=== PATIENT | male | born 1985 | race Caucasian/White ===

== ENCOUNTER 2020-08-02 19:25 | Emergency (ER) | payer SELFPAY ==
[2020-08-02 19:26] VITALS: BP 174/107; PULSE 99; RESP 18; TEMP 37.6; O2SAT 99; BMI 22.0
[2020-08-02] MEDS: LORazepam 2 MG/ML Syringe IM ×2 (19:39→21:50)
[2020-08-02] MEDS: Ziprasidone IM 20 MG/ML VIAL IM (19:39)
--- NOTE | 2020-08-02 19:47 | EX.ED.DYSGE1 ---
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 Reportedly he has not slept for 5 days because he is abusing amphetamines. He was exhibiting bizarre behavior for the police so they brought him to the emergency department under a pink slip. Patient states he just needs to go to sleep. He is extremely agitated and cursing. PFSH PFS Medical History (Updated 08/02/20 @ 19:[address] Dmitri Zazueta DO) Methamphetamine abuse Home Medications NK 08/02/20 [History Last Taken Unknown] Allergy/AdvReac Type Severity Reaction Status Date / Time No Known Allergies Allergy Verified 08/02/20 19:28 no surgical history Social History (Updated 08/02/20 @ 19:[address] Dmitri Zazueta DO) Smoking Status: Current every day smoker tobacco type: cigarettes substance use type: amphetamines ROS ROS ED Constitutional Constitutional ED: Denies chills or weight loss Eyes Eyes: Denies change in vision or diplopia ENT ENT ED: Denies ear pain, rhinorrhea or sore throat Cardiovascular Cardiovascular: Denies chest pain, orthopnea, palpitations or racing heartbeat Respiratory/Chest Respiratory/Chest: Denies cough, dyspnea or orthopnea Gastrointestinal Gastrointestinal: Denies abdominal pain, diarrhea, nausea or vomiting Genitourinary Genitourinary ED: Denies dysuria, hematuria or urinary frequency Musculoskeletal Musculoskeletal: Denies arthralgias or myalgias Integumentary Denies abscess or rash Neurologic Neurologic: Denies headache(s) or weakness Psychiatric Psychiatric: Denies anxiety, depression, suicidal ideation or suicidal thoughts Endocrine Endocrinology: Denies polydipsia, polyphagia or polyuria Allergic/Immunologic Allergic/Immunologic ED: Denies mouth swelling, tongue swelling or urticaria EXAM Physical Exam Const Vital Signs: 08/02/20 19:26 Temperature 99.6 F H Temperature Source Temporal Pulse Rate 99 Respiratory Rate 18 Blood Pressure 174/107 H Blood Pressure Mean 129 Pulse Ox 99 Oxygen Delivery Method Room Air Positive well nourished and well developed General Appearance ED: well developed HEENT Reports normocephalic, head/scalp atraumatic and moist mucous membranes Eyes PERRL and EOMs intact bilaterally Neck no lymphadenopathy, supple and no JVD Resp normal respiratory effort and clear to auscultation bilaterally Cardio regular rate, regular rhythm and no murmurs GI normal to inspection, nondistended, normoactive bowel sounds and non-tender Palpation: soft Back/Spine no CVA tenderness and normal ROM Extremity normal to inspection General Extremety ED: Negative for edema General Extremity: Negative for edema Neuro oriented x3 and CN's II-XII intact bilaterally Neuro Narrative: Patient is hyperalert. Motor Exam: strength 5/5 throughout Psych mental status grossly normal Psych Narrative: Patient has nonlinear thinking. He has pressured speech. He is very agitated. He is cursing quite loudly at the police and for some reason he is yelling at me. Mood & Affect: Negative for depressed or tearful Skin no rashes or lesions noted and no wounds MDM MDM MDM Narrative Medical decision making narrative: Patient was given 20 mg of Geodon and 2 mg of Ativan IM. He will be allowed to rest and when awake we can reevaluate his mental status Discharge Plan Triage Chief Complaint: Substance Abuse ED Provider: Dmitri Zazueta Dx/Rx/DC Orders Clinical Impression: Methamphetamine abuse Prescriptions: No Action NK RF: 0 Primary Care Provider: Care Physician,No Primary Referrals: Care Physician,No Primary [Primary Care Provider] -
[2020-08-02 21:25] VITALS: RESP 16
[2020-08-02 23:00] VITALS: RESP 15
[2020-08-03 01:00] VITALS: BP 133/100; PULSE 96; RESP 16; O2SAT 99
[2020-08-03 03:00] VITALS: RESP 15
[2020-08-03 05:47] VITALS: BP 129/78; PULSE 92; RESP 16; O2SAT 99
[2020-08-03 08:45] VITALS: RESP 18
== END 2020-08-03 09:09 | disposition home or self-care (01) ==
PROVIDERS: Emergency Provider Student in an Organized Health Care Education/Training Program
DX: F15.10 Other stimulant abuse, uncomplicated (principal); R45.1 Restlessness and agitation; F17.210 Nicotine dependence, cigarettes, uncomplicated; R40.0 Somnolence
CPT/HCPCS: 96372; 99282; J3486

== ENCOUNTER 2021-10-06 02:28 | Emergency (ER) | payer SELFPAY ==
[2021-10-06 02:28] VITALS: BP 183/106; PULSE 74; RESP 15; TEMP 36.9; O2SAT 98; BMI 20.6
== END 2021-10-06 02:46 | disposition left against medical advice (07) ==
LOC: ED 02:45
PROVIDERS: Emergency Provider Emergency Medicine; Visit Provider Emergency Medicine
DX: F15.10 Other stimulant abuse, uncomplicated (principal)
CPT/HCPCS: 99281

== ENCOUNTER 2022-08-17 21:39 | Emergency (ER) | payer MEDICAID, SELFPAY ==
[2022-08-17 21:39] VITALS: BP 148/108; PULSE 86; RESP 15; TEMP 36.3; O2SAT 100
[2022-08-17 21:51] VITALS: BMI 21.3
--- NOTE | 2022-08-17 22:12 | EKG12_ITS ---
Test Reason : LOWER EXTREMITIES Blood Pressure : / mmHG Vent. Rate : 080 BPM Atrial Rate : 080 BPM P-R Int : 142 ms QRS Dur : 090 ms QT Int : 378 ms P-R-T Axes : 077 092 068 degrees QTc Int : 435 ms Normal sinus rhythm Rightward axis Borderline ECG Confirmed by CHAVEZ BLACK, ASHOK ([id number]), news copy editor ROB TONEY ([id number]) on 08/18/2022 2:28:32 PM Referred By: Confirmed By:ASHOK BYRNE MD
--- NOTE | 2022-08-17 22:17 | US_ITS ---
STUDY: VENOUS DOPPLER ULTRASOUND - BILATERAL LOWER EXTREMITIES REASON FOR EXAM: Male, 37 years old. bilateral swelling and cramps TECHNIQUE: Ultrasound evaluation of the deep vein system to include borges-scale imaging and compression was performed. Borges-scale imaging and Doppler sonographic evaluation, including duplex spectral analysis and qualitative color flow sonography, was performed. COMPARISON: None. FINDINGS: RIGHT LEG Common Femoral Vein: Normal compression, spontaneity and augmentation. Normal color Doppler. Common Femoral Vein/Greater Saphenous Junction: Normal compression, spontaneity and augmentation. Normal color Doppler. Deep Femoral Vein: Normal compression, spontaneity and augmentation. Normal color Doppler. Femoral Proximal: Normal compression, spontaneity and augmentation. Normal color Doppler. Femoral Middle: Normal compression, spontaneity and augmentation. Normal color Doppler. Femoral Distal: Normal compression, spontaneity and augmentation. Normal color Doppler. Popliteal Vein: Normal compression, spontaneity and augmentation. Normal color Doppler. Posterior Tibial Vein: Normal compression, spontaneity and augmentation. Normal color Doppler. Peroneal Vein: Normal compression, spontaneity and augmentation. Normal color Doppler. LEFT LEG Common Femoral Vein: Normal compression, spontaneity and augmentation. Normal color Doppler. Common Femoral Vein/Greater Saphenous Junction: Normal compression, spontaneity and augmentation. Normal color Doppler. Deep Femoral Vein: Normal compression, spontaneity and augmentation. Normal color Doppler. Femoral Proximal: Normal compression, spontaneity and augmentation. Normal color Doppler. Femoral Middle: Normal compression, spontaneity and augmentation. Normal color Doppler. Femoral Distal: Normal compression, spontaneity and augmentation. Normal color Doppler. Popliteal Vein: Normal compression, spontaneity and augmentation. Normal color Doppler. Posterior Tibial Vein: Normal compression, spontaneity and augmentation. Normal color Doppler. Peroneal Vein: Normal compression, spontaneity and augmentation. Normal color Doppler. US/Venous Duplex Imag/Antwan Extrem IMPRESSION: Normal venous Doppler ultrasound of the bilateral lower extremities. Electronically Signed: Jhonathan Vazquez MD at 23:29 EDT ,
--- NOTE | 2022-08-17 22:26 | EDS_ITS ---
HPI History of Present Illness Chief Complaint: Lower Extremity Injury Informant: patient Narrative Narrative: Patient is a 37-year-old male with history of methamphetamine abuse presenting with insomnia and bilateral foot pain/swelling. Patient states that he has not slept for about a week and a half because he is just been doing drugs. He states he smokes with amphetamines. He denies any other drug use. He states he has been able to sleep. He came here because he was told we can help him. He also notes that the past 5 days he had worsening swelling of his feet and pain. He states his lower legs are cramping a lot as well. He thinks he has stress fractures. He has not been previously diagnosed with this or had any imaging. In addition he has significant sunburns to his lower extremities he states this is because he is just walking around all the time. He denies any HI or SI. Notes that he does get short of breath when he stands but states this because his legs hurt so much. No other complaints or concerns at this time. [facility] Medical History Methamphetamine abuse Home Medications NK 08/02/20 [History Last Taken Unknown] Allergy/AdvReac Type Severity Reaction Status Date / Time No Known Allergies Allergy Verified 08/17/22 21:43 Social History Smoking Status: Current every day smoker tobacco type: cigarettes substance use type: amphetamines ROS ROS ED Constitutional Constitutional ED: Reports other Details: Insomnia ; Denies chills or fever(s) Eyes Eyes: Denies change in vision Cardiovascular Cardiovascular: Denies chest pain or palpitations Respiratory/Chest Respiratory/Chest: Reports dyspnea; Denies cough Gastrointestinal Gastrointestinal: Denies abdominal pain, nausea or vomiting Genitourinary Genitourinary ED: Denies dysuria, hematuria or urinary frequency Musculoskeletal Musculoskeletal: Reports myalgias and other Details: Lower extremity leg cramping and foot pain ; Denies arthralgias Integumentary Reports other Details: Sunburn to the lower extremities Neurologic Neurologic: Denies headache(s) or weakness Psychiatric Psychiatric: Reports anxiety; Denies suicidal ideation or suicidal thoughts EXAM Physical Exam Const Vital Signs: 08/17/22 21:39 07/13/23 00:15 Temperature 97.4 F L Temperature Source Temporal Pulse Rate 86 Respiratory Rate 15 Blood Pressure 148/108 H 165/75 H Blood Pressure Mean 121 Pulse Ox 100 Oxygen Delivery Method Room Air Positive unkempt General Appearance ED: unkempt and NAD HEENT Reports moist mucous membranes Negative for trauma Eyes PERRL and EOMs intact bilaterally General Eye ED: Negative for pale conjunctiva or scleral icterus Neck supple and no JVD Chest Wall inspection of chest normal and palpation of chest normal Resp normal respiratory effort and clear to auscultation bilaterally Cardio regular rate, regular rhythm and no murmurs GI normal to inspection, nondistended, normoactive bowel sounds and non-tender Extremity Extremity Narrative: 2+ bilateral pitting edema of the feet. Diffuse tenderness palpation of the calfs and feet. No crepitus appreciated. Neuro oriented x3 Sensorium / Orientation: alert Motor Exam: Negative for general weakness Psych Psych Narrative: Patient acting appropriately at this time. Does not appear to be internally stimulated. Appearance: unkempt Skin Skin Narrative: Superficial sunburn of the lower extremities from the ankle to the knee with well demarcated areas of termination. No blistering appreciated or sloughing of the skin. No rash on the hands or the soles of the feet present. MDM MDM MDM Narrative Medical decision making narrative: Patient is evaluated for lower extremity pain and edema. This is conjunction with what sounds like a methamphetamine block. Differential includes rhabdomyolysis, trauma/fracture, DVT, electrolyte abnormalities and nephrotic syndrome. Patient is overall acting appropriate and states he just wants to sleep for couple days. Will start with IV fluids and dose of IV Ativan and I will perform medical work-up for this. Patient is agreeable with this at this time. Patient is now resting comfortably and sleeping. Work-up negative for DVT, ac mariann fracture, TERI or rhabdomyolysis. CK mildly elevated at 427 but does not meet criteria for rhabdo. Patient is resting comfortably. He does have a tiny metallic foreign body at the bottom of his left foot however is not causing pain. I think the risk of trying to remove it outweighs the benefit. Drug screen is positive for amphetamines which fits the patient's history. Patient is allowed to sleep in the ER for some time will be discharged home with resources to [facility] as well as [facility]. Lab Data Attestation: I reviewed the patient's lab results. Labs: Laboratory Results - last 24 hr 08/17/22 08/17/22 22:25 23:10 Sodium 137 Potassium 3.6 Chloride 104 Carbon Dioxide 31.0 Anion Gap 2 L BUN 13 Creatinine 0.91 Estim Creat Clear Calc 111.00 Est GFR (MDRD) Af Amer 120 Est GFR (MDRD) Non-Af 100 BUN/Creatinine Ratio 14.3 Glucose 98 Calcium 8.8 Magnesium 1.9 Total Bilirubin 0.30 AST 17 ALT 23 Alkaline Phosphatase 90 Total Creatine Kinase 427 H Total Protein 7.0 Albumin 3.4 Globulin 3.6 Albumin/Globulin Ratio 0.9 TSH 0.61 Urine Color Yellow Urine Clarity Clear Urine pH 7.0 Ur Specific [place] 1.010 Urine Protein 15 H Urine Glucose (UA) Normal Urine Ketones Negative Urine Occult Blood Negative Urine Nitrite Negative Urine Bilirubin Negative Urine Urobilinogen Normal Ur Leukocyte Esterase 25 H Urine RBC 0 SEEN Urine WBC 0-5 SEEN Ur Squamous Epith Cells 0 SEEN Urine Bacteria 0 SEEN Urine Mucus 0 SEEN Urine Opiates Screen NEGATIVE Urine Methadone Screen NEGATIVE Ur Barbiturates Screen NEGATIVE Ur Phencyclidine Scrn NEGATIVE Ur Amphetamines Screen POSITIVE H MDMA (Ecstasy) Screen NEGATIVE U Benzodiazepines Scrn NEGATIVE Urine Cocaine Screen NEGATIVE U Cannabinoids Screen NEGATIVE Ur Drug Screen Comment Ethyl Alcohol < 3.0 Radiography Diagnostic Testing: Clinical Impression(s) from Imaging Studies Venous Duplex 08/17/22 22:17 IMPRESSION: Normal venous Doppler ultrasound of the bilateral lower extremities. Electronically Signed: Jhonathan Vazquez MD at 23:29 EDT Reading Location ID and State: [id number] / [employer] Tel , Service support , Foot X-Ray 08/17/22 22:47 IMPRESSION: Normal x-ray examination of the foot. Electronically Signed: Jhonathan Vazquez MD at 23:33 EDT , Foot X-Ray 08/17/22 22:47 IMPRESSION: 1. No acute fracture or dislocation. 2. Tiny metallic foreign body in the plantar soft tissues of the first digit. Electronically Signed: Jhonathan Vazquez MD at 23:32 EDT , Bilateral foot x-ray?tiny metallic foreign body in the plantar aspect of the left great toe. No acute bony process. Rhythm Strip Rhythm Strip: Sinus Rhythm Rate: 80 Ectopy: None EKG Initial EKG: Attestation: I personally reviewed and interpreted this EKG as follows: Interpretation: Sinus Rhythm Comments: Normal sinus rhythm at a rate of 80 bpm Rightward axis Normal ST segments, questionable early repolarization versus pulmonary disease pattern Normal intervals Prior EKG tracings: not available for review Prior: No Prior Discharge Plan Triage Chief Complaint: Lower Extremity Injury ED Provider: Kaela Schmid Dx/Rx/DC Orders Clinical Impression: Leg edema, Sunburn of first degree, Methamphetamine abuse Instructions: ED Drug Abuse, ED Peripheral Edema, Bilateral, ED Sunburn Prescriptions: No Action NK Primary Care Provider: Care Physician,No Primary Referrals: Enriqueta Sierra [Non-Staff] - As Needed Care Physician,No Primary [Primary Care Provider] - [facility] [Non-Staff] - As soon as possible Disposition Disposition: Home, Self Care Discharge Date/Time: 08/18/22 00:20
[2022-08-17 22:44] LABS: Alcohol, Blood (Medical)-Serum < 3.0 mg/dL
--- NOTE | 2022-08-17 22:47 | RAD_ITS ---
STUDY: X-RAY - RIGHT FOOT CLINICAL: Male, 37 years old. Injury/Pain TECHNIQUE: 3 view(s) of the foot. COMPARISON: None. FINDINGS: Normal talus, calcaneus, and tarsal bones. Normal visualized subtalar, talonavicular, calcaneocuboid, tarsal and tarsometatarsal articulations. Normal metatarsi. Normal metatarsophalangeal joint of the great toe. Normal tibial and fibular sesamoid bones. Normal interphalangeal joint of the great toe. Normal phalanges of the great toe. Normal second through fifth metatarsophalangeal joints. Normal interphalangeal joints and phalanges of the lesser toes. The soft tissue structures are unremarkable. RAD/Foot min 3 Views IMPRESSION: Normal x-ray examination of the foot. Electronically Signed: Jhonathan Vazquez MD at 23:33 EDT ,
--- NOTE | 2022-08-17 22:47 | RAD_ITS ---
STUDY: X-RAY - LEFT FOOT CLINICAL: Male, 37 years old. Injury/Pain TECHNIQUE: 3 view(s) of the foot. COMPARISON: None. FINDINGS: Normal talus, calcaneus, and tarsal bones. Normal visualized subtalar, talonavicular, calcaneocuboid, tarsal and tarsometatarsal articulations. Normal metatarsi. Normal metatarsophalangeal joint of the great toe. Normal tibial and fibular sesamoid bones. Normal interphalangeal joint of the great toe. Normal phalanges of the great toe. Normal second through fifth metatarsophalangeal joints. Normal interphalangeal joints and phalanges of the lesser toes. The soft tissue structures are unremarkable. 2 mm thin metallic foreign body in the plantar soft tissues of the first digit. RAD/Foot min 3 Views IMPRESSION: 1. No acute fracture or dislocation. 2. Tiny metallic foreign body in the plantar soft tissues of the first digit. Electronically Signed: Jhonathan Vazquez MD at 23:32 EDT ,
[2022-08-17] MEDS: 0.9% Normal Saline 1,000 ML 999 ML IV (22:57)
[2022-08-17] MEDS: LORazepam 2 MG/ML Syringe 0.5 MG IV (22:57)
[2022-08-17 22:58] LABS: ALB/GLOB Ratio 0.9 RATIO (0.9-2.4); AST(SGOT) 17 U/L (15-37); Alanine Aminotransfer ALT/SGPT 23 U/L (16-61); Albumin, Serum 3.4 g/dL (3.2-5.0); Alkaline Phosphatase 90 U/L (45-117); Anion Gap 2 (5-15); BUN 13 mg/dL (7-18); BUN/Creat Ratio 14.3 RATIO (10-20); CPK Total, Creatine Kinase 427 U/L (39-308); Calcium,Total 8.8 mg/dL (8.5-10.1); Chloride 104 mmol/L (98-107); Creatinine, Serum 0.91 mg/dL (0.70-1.30); EST Glomerular Filtration Rate 100 mL/min (>60); Est Glom Filt Rate - Afr Amer 120 mL/min (>60); Globulin 3.6 g/dL (2.2-4.2); Glucose 98 mg/dL (74-106); Magnesium 1.9 mg/dL (1.6-2.6); Potassium 3.6 mmol/L (3.5-5.1); Sodium Level 137 mmol/L (136-145); Thyroid Stim Hormone (TSH) 0.61 uIU/mL (0.358-3.74)
[2022-08-17 23:17] LABS: Bacteria 0 SEEN /hpf (None Seen); Mucous, Urine 0 SEEN /hpf (<or=2+); Red Blood Cells-Urine 0 SEEN /hpf (0-5); Squamous Epithelial Cells - UA 0 SEEN /hpf (0-5)
[2022-08-17 23:19] LABS: Color, Urine Yellow (Yellow); Glucose, Dipstick Normal (Normal); Ketone-Dipstick Negative (Negative); Leukocyte Esterase-Dipstick 25 /ul (Negative); Nitrite-Dipstick Negative (Negative); Occult Blood-Urine Negative /ul (Negative); Protein-Dipstick 15 mg/dl (Negative); Urine Bilirubin Dipstick Negative (Negative); Urine Clarity Clear (Clear); Urine Urobilinogen Normal (Normal)
[2022-08-17 23:25] LABS: White Blood Cells 0-5 SEEN /hpf (0-5)
[2022-08-17 23:31] LABS: Amphetamine Urine VISTA POSITIVE (<1000 ng/mL); Barbiturate Urine VISTA NEGATIVE (< 200 ng/mL); Benzodiazepine Urine VISTA NEGATIVE (< 200 ng/mL); Cocaine Urine VISTA NEGATIVE (< 300 ng/mL); Ecstacy Urine VISTA NEGATIVE (< 500 ng/mL); Methadone Urine VISTA NEGATIVE (< 300 ng/mL); PCP Urine VISTA NEGATIVE (< 25 ng/mL); THC Urine VISTA NEGATIVE (< 50 ng/mL); Vista UDS pH Range 6
[2022-08-18 00:15] VITALS: BP 165/75
== END 2022-08-18 00:20 | disposition home or self-care (01) ==
PROVIDERS: Emergency Provider Emergency Medicine; Visit Provider Emergency Medicine
DX: R60.0 Localized edema (principal); F15.10 Other stimulant abuse, uncomplicated; L55.0 Sunburn of first degree; M79.671 Pain in right foot; M79.672 Pain in left foot; S90.852A Superficial foreign body, left foot, initial encounter; X58.XXXA Exposure to other specified factors, initial encounter; G47.00 Insomnia, unspecified; F17.210 Nicotine dependence, cigarettes, uncomplicated
CPT/HCPCS: 73630; 80053; 80307; 81001; 82077; 82550; 83735; 84443; 93005; 93970; 96361; 96374; 99283; J7030; A4216

== ENCOUNTER 2024-12-14 14:27 | Emergency (ER) | payer MEDICAID, SELFPAY ==
[2024-12-14 14:28] VITALS: BP 138/86; PULSE 90; RESP 16; TEMP 36.6; O2SAT 99
[2024-12-14 14:31] VITALS: BMI 22.1
[2024-12-14 14:34] VITALS: BP 121/73; PULSE 80; RESP 16; O2SAT 97
--- NOTE | 2024-12-14 15:14 | EX.ED.DYSGE1 ---
HPI History of Present Illness Chief Complaint: Abd Pain Informant: patient Narrative Narrative: Patient is a 39-year-old male with history of methamphetamine abuse. He states that a few weeks ago he thinks he ate some bad chicken. He states he has had generalized abdominal pain since that time. He states that he believes he has pus in his stomach. He states has been no nausea vomiting diarrhea. He denies any fevers or chills. However because he has concern for intestinal infection he presents for evaluation [facility] Medical History Methamphetamine abuse Home Medications ?Medication ?Instructions ?Recorded ?Last Taken ?Type ciprofloxacin HCl 500 mg tablet 500 mg PO BID 5 days #10 tabs 12/14/24 Unknown Rx (Cipro) ondansetron 4 mg disintegrating 4 mg PO TID PRN nausea and 12/14/24 Unknown Rx tablet vomiting #21 tabs Allergy/AdvReac Type Severity Reaction Status Date / Time No Known Allergies Allergy Verified 12/14/24 14:29 Social History Smoking Status: Former smoker substance use type: amphetamines ROS ROS ED Constitutional Constitutional ED: Denies chills or fever(s) ENT ENT ED: Denies sore throat Cardiovascular Cardiovascular: Denies chest pain Respiratory/Chest Respiratory/Chest: Denies cough or dyspnea Gastrointestinal Gastrointestinal: Reports abdominal pain; Denies diarrhea, nausea or vomiting Genitourinary Genitourinary ED: Denies dysuria Musculoskeletal Musculoskeletal: Denies myalgias Integumentary Denies rash Neurologic Neurologic: Denies headache(s) Hematologic/Lymphatic Hematologic/Lymphatic: Denies easy bleeding or easy bruising EXAM Physical Exam Const Vital Signs: 12/14/24 14:28 12/14/24 14:34 Temperature 97.9 F Temperature Source Temporal Pulse Rate 90 80 Respiratory Rate 16 16 Blood Pressure 138/86 H 121/73 H Blood Pressure Mean 103 89 Pulse Ox 99 97 Oxygen Delivery Method Room Air Room Air Positive well nourished and well developed General Appearance ED: well developed; Negative for pallor HEENT HEENT Narrative: Normocephalic atraumatic No tongue or lip swelling no oral lesions no airway edema or compromise No secondary findings in the posterior pharynx to suggest infection Eyes PERRL and EOMs intact bilaterally General Eye ED: Negative for scleral icterus Neck supple Resp normal respiratory effort and clear to auscultation bilaterally Cardio regular rate and regular rhythm GI normal to inspection, nondistended, normoactive bowel sounds, non-tender, non-distended and no masses GI Narrative: Abdomen is soft nontender nondistended with normal active bowel sounds No voluntary guarding or rigidity or pulsatile mass No peritoneal signs Auscultation: normoactive bowel sounds Palpation: soft Extremity normal to inspection Neuro oriented x3, CN's II-XII intact bilaterally and no sensory deficits noted Sensorium / Orientation: alert Motor Exam: strength 5/5 throughout Psych Psych Narrative: Nervous/anxious affect Mood & Affect: anxious Skin no rashes or lesions noted and no wounds General Skin Exam: Negative for jaundice or pallor MDM MDM MDM Narrative Medical decision making narrative: Patient arrived to the ER complaining that he ate tainted chicken and now has an abdominal infection. Despite this complaint his vitals are stable his abdomen is nontender he denies having any fevers or chills or GI symptoms such as nausea vomiting or diarrhea. Based on his history and exam and stable vitals I have low concern that there is an intestinal abscess or secondary infection such as colitis/diverticulitis. As he has concern that he has Salmonella I do feel the safest option is to simply place him on a 5-day course of Cipro which would cover for the potential infection. However with stable vitals and normal physical exam I do not feel the need for CT scan or laboratory studies. I discussed this plan of care with the patient and he is agreeable to it as the medication will be covering him for Salmonella. Therefore patient is otherwise safe for discharge and can follow-up as an outpatient and symptoms persist or worsen History & Record Review Discussion w/independent historian: Patient Discharge Plan Triage Chief Complaint: Abd Pain ED Provider: Bon Martinez Dx/Rx/DC Orders Clinical Impression: Abdominal pain, Methamphetamine abuse Instructions: Abdominal Pain, ED Rafat Gastroenteritis?Adult Prescriptions: New ciprofloxacin HCl [Cipro] 500 mg tablet 500 mg PO BID 5 Days Qty: 10 0RF ondansetron 4 mg tablet,disintegrating 4 mg PO TID PRN (Reason: nausea and vomiting) Qty: 21 0RF Primary Care Provider: Care Physician,No Primary Referrals: Refugio Alvarenga MD [Med Staff - Active Staff, Family Practice] Care Physician,No Primary [Primary Care Provider, Medical] Activity Restrictions/Additional Instructions: You are concerned that you have Salmonella and because of this we will start you on ciprofloxacin which will treat the infection. Use the Zofran to help control any nausea and vomiting. Return to the ER should you have any further concerns Print Language: Khmer Disposition Disposition: Home, Self Care Discharge Date/Time: 12/14/24 15:20
[2024-12-14 15:17] VITALS: BP 120/75; PULSE 83; RESP 16; TEMP 36.6; O2SAT 99
== END 2024-12-14 15:20 | disposition home or self-care (01) ==
PROVIDERS: Emergency Provider Emergency Medicine; Visit Provider Emergency Medicine
DX: R10.84 Generalized abdominal pain (principal); F15.10 Other stimulant abuse, uncomplicated; Z87.891 Personal history of nicotine dependence
CPT/HCPCS: 99283

== ENCOUNTER 2024-12-22 08:49 | Emergency (ER) | payer MEDICAID, SELFPAY ==
[2024-12-22 08:50] VITALS: BP 127/94; PULSE 104; RESP 18; TEMP 36.6; O2SAT 100; BMI 21.7
--- NOTE | 2024-12-22 08:56 | CT_ITS ---
PROCEDURE: ABDOMEN/PELVIS W IV CONT ONLY 12/22/2024 REASON FOR EXAM: PAIN TECHNIQUE: Procedure Code: [id number] Modality: CT Procedure: ABDOMEN/PELVIS W IV CONT ONLY Coronal and Sagittal reconstruction series were provided. CONTRAST: Isovue 370 VOLUME: 100 mL One or more dose reduction techniques were used (e.g., Automated exposure control, adjustment of the mA and/or kV according to patient size, use of iterative reconstruction technique. RADIATION DOSE SUMMARY: CTDlvol: 23.86 mGy DLP: 767.39 mGycm COMPARISON: None FINDINGS: Lung bases: Clear Liver: Normal size. No mass. Gallbladder: Unremarkable Spleen: Normal size. Pancreas: Normal size without evidence of mass surrounding inflammation or ductal dilation. Adrenals: Unremarkable Kidneys: No obstructive uropathy or suspicious solid renal lesion. Bladder: Normal Bowel: No CT evidence of obstruction, there are fluid distended small bowel loops suggestive of ileus. Retained stool noted throughout the majority of the colon. Appendix: Normal appendix seen on coronal recon images 46 through 55 Lymph nodes: No suspicious mesenteric or retroperitoneal adenopathy Vasculature: The abdominal aorta and IVC are normal. Peritoneum / Retroperitoneum: No free fluid or air Bones: Unremarkable CT/Abdomen/Pelvis W IV Cont ONLY IMPRESSION: Small-bowel ileus No suspicious solid organ abnormality No free intraperitoneal fluid, air, or suspicious adenopathy, normal appendix v isualized Reading Location: [id number]
--- NOTE | 2024-12-22 08:57 | EDS_ITS ---
HPI HPI - GI History of Present Illness Chief Complaint: Abd Pain Narrative Narrative: 39-year-old male who denies significant past medical history, no past abdominal surgeries, presents with abdominal pain mainly in the epigastrium and right upper quadrant, and abdominal bloating that has had for the last month. Of note, he was seen in the emergency department 8 days ago. He states that at that time he had suspected food poisoning, and they put him on antibiotics which he finished. He has not followed up with a primary care provider. He states he is having ongoing abdominal pain and swelling. [facility] Medical History Methamphetamine abuse Home Medications Medication Instructions Recorded Last Taken Type ondansetron 4 mg disintegrating 4 mg PO TID PRN nausea and 12/14/24 12/22/24 Rx tablet vomiting #21 tabs Allergy/AdvReac Type Severity Reaction Status Date / Time No Known Allergies Allergy Verified 12/22/24 08:50 Social History Smoking Status: Former smoker substance use type: amphetamines ROS ROS ED ROS Narrative Review of systems positive for abdominal pain and swelling. No fevers or chills, no nausea or vomiting, no diarrhea. No exacerbating or alleviating factors. Reports symptoms for 1 month. No prior abdominal surgeries. EXAM Physical Exam Narrative Exam Narrative: Afebrile. Vital signs noted. Nontoxic-appearing. Cardiovascular examination reveals mild tachycardia. Lungs are clear to auscultation bilaterally. Abdomen is soft with tenderness to palpation mainly in the epigastrium as well as to the right upper quadrant. No guarding or rebound. No abdominal distention or bloating noted. Positive bowel sounds. Neurological examination nonfocal, nonlateralizing. No pedal edema. Const Vital Signs: 12/22/24 08:50 Temperature 98 F Temperature Source Temporal Pulse Rate 104 H Respiratory Rate 18 Blood Pressure 127/94 H Blood Pressure Mean 105 Pulse Ox 100 Oxygen Delivery Method Room Air MDM MDM MDM Narrative Medical decision making narrative: The differential diagnosis includes but not limited to nonspecific abdominal pain, cholecystitis, pancreatitis versus diverticulitis. Additionally, given recent antibiotic use, he may have C. difficile colitis, however he is not having any symptoms of diarrhea. History and physical does not support ureterolithiasis. Also history and physical does not support diverticulitis. I reviewed his prior ED visit. He had been given 5 days of Cipro to cover Salmonella for food poisoning. I do feel that anxiety may play some component in his chief complaint. As his symptoms have been ongoing for a month, I doubt any acute pathology, however, as no laboratory work or imaging was performed previously, I will check a CBC, CMP, lipase, UA, and obtain CT imaging to rule out any pathology that is acute. CBC obtained and reviewed. He has normal white count at 9.4 with hemoglobin normal at 14.0, hematocrit 42.6, platelet count normal at 218. CMP is grossly unremarkable except for glucose of 100 with a normal anion gap of 11, normal sodium and potassium. BUN and creatinine also normal. LFTs grossly unremarkable. Urinalysis negative for infection. 0 WBCs. I do not feel that antibiotics are indicated. I reviewed the radiology report of the CT of the abdomen and pelvis. There is no evidence of an acute obstruction. It does appear that he may have a small bowel ileus and stool throughout the colon consistent more with constipation. I do not feel that he requires observation or admission for ileus. Repeat examination shows him resting comfortably without vomiting. Additionally he does have bowel sounds on examination. At this point in time, he was referred to a primary care provider. He can take an [id number] laxative and be discharged for follow-up. Return instructions were reviewed. Disposition is discharged home, in stable condition. History & Record Review Discussion w/independent historian: Patient Additional record(s) reviewed:: Prior ED visit Lab Data Attestation: I reviewed the patient's lab results. Labs: Laboratory Results - last 24 hr 12/22/24 12/22/24 09:05 10:05 WBC 9.4 RBC 4.92 Hgb 14.0 Hct 42.6 MCV 86.6 MCH 28.5 MCHC 32.9 RDW Std Deviation 43.1 RDW Coeff of Siri 13.6 Plt Count 218 MPV 9.8 Immature Gran % (Auto) 0.200 Neut % (Auto) 68.8 Lymph % (Auto) 20.7 [place] % (Auto) 8.9 Eos % (Auto) 1.0 Baso % (Auto) 0.4 Absolute Neuts (auto) 6.5 Absolute Lymphs (auto) 1.95 Nucleated RBC % 0 Sodium 139 Potassium 3.9 Chloride 104 Carbon Dioxide 23.4 Anion Gap 11 BUN 8 Creatinine 0.98 Estim Creat Clear Calc 103.03 Est GFR (MDRD) Non-Af 100 BUN/Creatinine Ratio 8.1 L Glucose 100 H Calcium 9.4 Total Bilirubin 0.93 AST 22 ALT 11 Alkaline Phosphatase 82 Total Protein 7.4 Albumin 4.3 Globulin 3.1 Albumin/Globulin Ratio 1.4 Lipase 9 L Urine Color Yellow Urine Clarity Clear Urine pH 7.0 Ur Specific [place] 1.005 Urine Protein 15 H Urine Glucose (UA) Normal Urine Ketones Negative Urine Occult Blood Negative Urine Nitrite Negative Urine Bilirubin Negative Urine Urobilinogen Normal Ur Leukocyte Esterase Negative Urine RBC 0 SEEN Urine WBC 0 SEEN Ur Squamous Epith Cells 0 SEEN Urine Bacteria 0 SEEN Urine Mucus 0 SEEN Radiography Diagnostic Testing: Clinical Impression(s) from Imaging Studies Abdomen/Pelvis CT 12/22/24 08:56 IMPRESSION: Small-bowel ileus No suspicious solid organ abnormality No free intraperitoneal fluid, air, or suspicious adenopathy, normal appendix visualized Reading Location: [facility] Discharge Plan Triage Chief Complaint: Abd Pain ED Provider: Jamie Espinosa Dx/Rx/DC Orders Clinical Impression: Ileus, Constipation, Abdominal pain Instructions: Ileus, ED Constipation (Adult), ED Abdominal Pain Unkn Cause Male... Prescriptions: No Action ondansetron 4 mg tablet,disintegrating 4 mg PO TID PRN (Reason: nausea and vomiting) Qty: 21 0RF Primary Care Provider: Care Physician,No Primary Referrals: Jennifer Jurado MD [Med Staff - Loss Mitigation Specialist, Family Practice] - As soon as possible Care Physician,No Primary [Primary Care Provider, Medical] Activity Restrictions/Additional Instructions: Follow-up with primary care and 1 to 2 days if not improving. Return with nausea and vomiting, new or worsening symptoms. Print Language: Hebrew Disposition Disposition: Home, Self Care D/C Safety Score for UGIB Assessment Andrey-Blatchford Bleeding Score (GBS): Stratifies upper GI bleeding patients who are "low-risk" and candidates for outpatient management. Hemoglobin, BUN, Recent Vital Signs: Hgb 14.0 g/dL (13.0-16.5) 12/22/24 09:05 BUN 8 mg/dL (4-19) 12/22/24 09:05 Pulse Rate 104 Blood Pressure 127/94 Score Interpretation: Score of 0: A GBS of 0 is a “Low Risk” GI bleed, and is highly sensitive (99.6% in a 2007 retrospective study) for predicting which patients did not require any “medical intervention”: blood transfusion, endoscopy, or surgery. This was confirmed in a 2009 [facility] study where patients with a score of 0 were actually discharged and had no GI bleeding mortality at 6 month followup Score above 0: A GBS greater than zero suggests a “High Risk” GI bleed that is likely to require “medical intervention”: transfusion, endoscopy, or surgery. A higher GBS also correlated with a higher likelihood of needing intervention Scores >/= 6 are associated with >50% risk of needing intervention D/C Safety Score for LGIB Assessment Assessment Tool: Readmission and adverse event risk in patients with acute lower GI bleeding. Hemoglobin and Recent Vital Signs: Hgb 14.0 g/dL (13.0-16.5) 12/22/24 09:05 Pulse Rate 104 12/22/24 08:50 Blood Pressure 127/94 12/22/24 08:50 Score Interpretation: Probability Percentage of safe discharge (absence of rebleeding, blood transfusion, therapeutic intervention, 28 day readmission, or ) Score of 8 or below: Consider discharge, with appropriate precautions. Score of 9 or above: Discharge NOT recommended. Consider admission with further workup and resuscitation as necessary.
[2024-12-22] MEDS: 0.9% Normal Saline (1000mL) 1,000 ML 999 ML IV (09:06)
[2024-12-22 09:17] LABS: Hematocrit 42.6 % (40-54); Hemoglobin 14.0 g/dL (13.0-16.5); Immature Granulocytes Count 0.020 X10^3/uL (0.0-0.0); Mean Corp Hgb Conc 32.9 g/dL (32-36); Mean Corpuscular Volume 86.6 fL (80-94); Mean Platelet Vol. 9.8 fl (6.2-12.0); NRBC Flagged by Analyzer 0 % (0-5); Platelet Count 218 K/mm3 (150-450); RBC Distribution Width CV 13.6 % (11.6-14.6); RBC Distribution Width SD 43.1 fl (35.1-43.9); Red Blood Count 4.92 M/mm3 (4.6-6.2); White Blood Count 9.4 K/mm3 (4.4-11.0)
--- OUTSIDE RECORDS SUMMARY | 2024-12-22 09:17 | XMS RPT_ITS | CCD ---
Author Organization [facility] Care Team Providers Care Hand Or Machine Paster Name Role Phone Bear Palacio Unavailable Unavailable Bear Palacio Unavailable Unavailable VIRIDIANA HUNT MD Unavailable Unavailable VIRIDIANA HUNT MD Unavailable Unavailable VIRIDIANA HUNT MD Unavailable Unavailable Bear Romero Attending Unavailable TASHA CUEVAS PA-C Attending Un available Kirt Lucio Attending Unavailable Bon Martinez Attending Unavailable Care Physician, No Primary Primary Care Unava ilable Allergies Allergy Classification Reported Allergen(s) Allergy Type Date of Onset Reaction(s) Facility (1 source) No Known Medication Allergies; Translations: [No Known Medication Allergies] Propensity to adverse reactions to drug (disorder) [facility] Repository Problems Problem Classification Problem Date Documented Da te Episodic/Chronic Substance-related disorders (1 source) Methamphetamine abuse; Translations: [Other stimulant abuse, uncomplicated] 08-02-2020 Chronic Results Test Name Value Interpretation Reference Range Facility Emergency Department Summary on 12-14-2024 Emergency Department Summary [facility] Medical Records Department [address] [place] [id number] Emergency Department Summary 12/14/24 MR#: [id number] Acct: [id number] Name: ROB MAXWELL Rep #: [id number] : 1985 39 From: Bon Martinez DO PCP: Care Physician,No Primary Status:DEP ER Location: ED HPI History of Present Illness Chief Complaint: Abd Pain Informant: patient Narrative Narrative: Patient is a 39-year-old male with history of methamphetamine abuse. He states that a few weeks ago he thinks he ate some "bad chicken". He states he has had generalized abdominal pain since that time. He states that he believes he has "pus in his stomach". He states has been no nausea vomiting diarrhea. He denies any fevers or chills. However because he has concern for intestinal infection he presents for evaluation [facility] Medical History Methamphetamine abuse Home Medications ???Medication ???Instructions ???Recorded ???Last Taken ???Type ciprofloxacin HCl 500 mg tablet 500 mg PO BID 5 days #10 tabs 09/30 Unknown Rx (Cipro) ondansetron 4 mg disintegrating 4 mg PO TID PRN nausea and 5 Unknown Rx tablet vomiting #21 tabs Allergy/AdvReac Type Severity Reaction Status Date / Time No Known Allergies Allergy Verified 12/14/24 14:29 Social History Smoking Status: Former smoker substance use type: amphetamines ROS ROS ED Constitutional Constitutional ED: Denies chills or fever(s) ENT ENT ED: Denies sore throat Cardiovascular Cardiovascular: Denies chest pain Respiratory/Chest Respiratory/Chest: Denies cough or dyspnea Gastrointestinal Gastrointestinal: Reports abdominal pain; Denies diarrhea, nausea or vomiting Genitourinary Genitourinary ED: Denies dysuria Musculoskeletal Musculoskeletal: Denies myalgias Integumentary Denies rash Neurologic Neurologic: Denies headache(s) Hematologic/Lymphatic Hematologic/Lymphatic: Denies easy bleeding or easy bruising EXAM Physical Exam Const Vital Signs: 12/14/24 14:28 12/14/24 14:34 Temperature 97.9 F Temperature Source Temporal Pulse Rate 90 80 Respiratory Rate 16 16 Blood Pressure 138/86 H 121/73 H Blood Pressure Mean 103 89 Pulse Ox 99 97 Oxygen Delivery Method Room Air Room Air Positive well nourished and well developed General Appearance ED: well developed; Negative for pallor HEENT HEENT Narrative: Normocephalic atraumatic No tongue or lip swelling no oral lesions no airway edema or compromise No secondary findings in the posterior pharynx to suggest infection Eyes PERRL and EOMs intact bilaterally General Eye ED: Negative for scleral icterus Neck supple Resp normal respiratory effort and clear to auscultation bilaterally Cardio regular rate and regular rhythm GI normal to inspection, nondistended, normoactive bowel sounds, non-tender, non-distended and no masses GI Narrative: Abdomen is soft nontender nondistended with normal active bowel sounds No voluntary guarding or rigidity or pulsatile mass No peritoneal signs Auscultation: normoactive bowel sounds Palpation: soft Extremity normal to inspection Neuro oriented x3, CN's II-XII intact bilaterally and no sensory deficits noted Sensorium / Orientation: alert Motor Exam: strength 5/5 throughout Psych Psych Narrative: Nervous/anxious affect Mood Affect: anxious Skin no rashes or lesions noted and no wounds General Skin Exam: Negative for jaundice or pallor MDM MDM MDM Narrative Medical decision making narrative: Patient arrived to the ER complaining that he ate tainted chicken and now has an abdominal infection. Despite this complaint his vitals are stable his abdomen is nontender he denies having any fevers or chills or GI symptoms such as nausea vomiting or diarrhea. Based on his history and exam and stable vitals I have low concern that there is an intestinal abscess or secondary infection such as colitis/diverticulitis. As he has concern that he has Salmonella I do feel the safest option is to simply place him on a 5-day course of Cipro which would cover for the potential infection. However with stable vitals and normal physical exam I do not feel the need for CT scan or laboratory studies. I discussed this plan of care with the patient and he is agreeable to it as the medication will be covering him for Salmonella. Therefore patient is otherwise safe for discharge and can follow-up as an outpatient and symptoms persist or worsen History Record Review Discussion w/independent historian: Patient Discharge Plan Triage Chief Complaint: Abd Pain ED Provider: Bon Martinez Dx/Rx/DC Orders Clinical Impression: Abdominal otis (more content not included)... Normal [facility] Basophil percentageOrdered B y: Kaela Schmid on 08-17-2022 Basophil percentage 0-5 SEEN /hpf 0-5 [facility] Bilirubin [Mass/Vol] 0.30 mg/dL 0.20-1.00 [facility] Comment on above: For patients on eltr ombopag therapy, use of Dimension [place] TBIL is not recommended. Chloride [Moles/Vol] 104 mmol/L 98-107 [facility] Glucose [Mass/Vol] 98 mg/dL 74-106 [facility] Potassium [Moles/Vol] 3.6 mmol/L 3.5-5.1 [facility] Protein [Mass/Vol] 7.0 g/dL 6.4-8.2 [facility] Sodium [Moles/Vol] 137 mmol/L 136-145 [facility] Bilirubin Test strip Ql (U)O rdered By: Kaela Schmid on 08-17-2022 Bilirubin Ql (U) Negative Negative [facility] Ketones Test strip Ql (U)Ord ered By: Kaela Schmid on 08-17-2022 Ketones Ql (U) Negative Negative [facility] Laboratory - Chemistry and C hemistry - challengeOrdered By: Kaela Schmid on 08-17-2022 ALP [Catalytic activity/Vol] 90 U/L 45-117 [facility] ALT [Catalytic activity/Vol] 23 U/L 16-61 [facility] CK [Catalytic activity/Vol] 427 U/L 39-308 [facility] CO2 [Moles/Vol] 31.0 mmol/L 21.0-32.0 [facility] Globulin (S) [Mass/Vol] 3.6 g/dL 2.2-4.2 [facility] Magnesium [Mass/Vol] 1.9 mg/dL 1.6-2.6 [facility] Urea nitrogen/Creatinine [Mass ratio] 14.3 mg/mg 10-20 [facility] Laboratory - Drug toxicology Ordered By: Kaela Schmid on 08-17-2022 Amphetamines Ql (U) Positive <1000 ng/mL [facility] Benzodiazepines Ql (U) Negative < 200 ng/mL [facility] Cannabinoids Screen Ql (U) Negative < 50 ng/mL [facility] Cocaine Ql (U) Negative < 300 ng/mL [facility] Opiates Ql (U) Negative < 300 ng/mL [facility] Mucus LM Ql (Urine sed)Order ed By: Kaela Schmid on 08-17-2022 Mucus Ql (Urine sed) 0 SEEN /hpf [facility] Nitrite Test strip Ql (U)Ord ered By: Kaela Schmid on 08-17-2022 Nitrite Ql (U) Negative Negative [facility] No Panel InformationOrdered By: Kaela Schmid on 08-17-2022 MDMA (Ecstasy) Screen Negative < 500 ng/mL [facility] Urine Barbiturates Screen Negative < 200 ng/mL [facility] Urine Drug Screen Comment [facility] Comment on above: CONFIRMATORY TESTING FOR ALL POSITIVE URINE DRUG SCREENRESULTS WILL ONLY BE SENT OUT UPON PHYSICIAN ORDER. VISTA Urine Drug Screen methods provide only preliminaryanalytical test results. A more specific alternate chemicalmethod must be used in order to obtain a confirmedanalytical result. Gas chromatography/mass spectrometery(GC/MS) is the preferred confirmatory method. Clinicalconsideration and professional judgement should be appliedto any drug of abuse test result, particularly whenpreliminary positive results are used. URINE TCA TESTING MUST BE ORDERED SEPARATELY. USE TESTMNEMONIC: [facility] Urine Methadone Screen Negative < 300 ng/mL [facility] Estimated Creatinine Clearance Calc 111.00 ml/min [facility] Estimated GFR (MDRD) Amer 120 mL/min >60 [facility] Comment on above: GFR Calc Estimated GFR (MDRD) Non-Af Amer 100 mL/min >60 [facility] Comment on above: Non- GFR Calc Ethyl Alcohol Level < 3.0 mg/dL [facility] Comment on above: The serum:whole bloo d ethanol ratio is approximately 1.14and varies slightly with hematocrit. Medical Alcohol reference interval and critical value innon-tolerant individuals; 50 - 100 Impairment 100 Intoxication 100 - 250 Severe Poisoning 250 - 400 Deep/possible fatal coma Thyroid Stimulating Hormone (TSH) 0.61 uIU/mL 0.358-3.74 [facility] Protein Test strip Ql (U)Ord ered By: Kaela Schmid on 08-17-2022 Protein Ql (U) 15 mg/dl Negative [facility] Serum or plasma albumin maria del carmen urement (mass/volume)Ordered By: Kaela Schmid on 08-17-2022 Albumin [Mass/Vol] 3.4 g/dL 3.2-5.0 [facility] Serum or plasma albumin/glob ulin mass ratioOrdered By: Kaela Schmid on 08-17-2022 Albumin/Globulin [Mass ratio] 0.9 {ratio} 0.9-2.4 [facility] Serum or plasma calcium maria del carmen urement (mass/volume)Ordered By: Kaela Schmid on 08-17-2022 Calcium [Mass/Vol] 8.8 mg/dL 8.5-10.1 [facility] Serum or plasma creatinine m easurement (mass/volume)Ordered By: Kaela Schmid on 08-17-2022 Creatinine [Mass/Vol] 0.91 mg/dL 0.70-1.30 [facility] Comment on above: The validity of the calculated GFR & GFRAA in patients over 70 years has not been determined. Clinical correlation is essential. Serum or plasma urea nitroge n measurement (mass/volume)Ordered By: Kaela Schmid on 08-17-2022 Urea nitrogen [Mass/Vol] 13 mg/dL 7-18 [facility] Squamous epithelial cells de tection in urine sediment by light microscopyOrdered By: Kaela Schmid on 08-17-2022 Epithelial cells.squamous LM Ql (Urine sed) 0 SEEN /hpf 0-5 [facility] Thin prep Papanicolaou smear with manual screeningOrdered By: Kaela Schmid on 08-17-2022 Thin prep Papanicolaou smear with manual screening 17 U/L 15-37 [facility] Thin prep Papanicolaou smear with manual screening 2 5-15 [facility] Urine blood detectionOrdered By: Kaela Schmid on 08-17-2022 RBC Ql (U) Negative Negative [facility] RBC Ql (U) 0 SEEN /hpf 0-5 [facility] Urine clarityOrdered By: Gloria Schmid on 08-17-2022 Clarity (U) Clear Clear [facility] Urine color determinationOrd ered By: Kaela Schmid on 08-17-2022 Color (U) Yellow Yellow [facility] Urine glucose detectionOrder ed By: Kaela Schmid on 08-17-2022 Glucose Ql (U) Normal mg/dl Normal [facility] Urine leukocyte esterase det ection by dipstickOrdered By: Kaela Schmid on 08-17-2022 Leukocyte esterase Test strip Ql (U) 25 /ul Negative [facility] Urine pHOrdered By: Kaela fernandez on 08-17-2022 pH (U) 7.0 [pH] 5.0 - 8.0 [facility] Urine phencyclidine (PCP) de tectionOrdered By: Kaela Schmid on 08-17-2022 Phencyclidine Ql (U) Negative < 25 ng/mL [facility] Urine sediment bacteria coun t by microscopy (number/high power field)Ordered By: Kaela Schmid on 08-17-2022 Bacteria LM.HPF (Urine sed) [#/Area] 0 /[HPF] None Seen [facility] Urine specific gravity measu rementOrdered By: Kaela Schmid on 08-17-2022 Specific gravity (U) [Rel density] 1.010 1.002-1.03 0 [facility] Urobilinogen Auto test strip Ql (U)Ordered By: Kaela Schmid on 08-17-2022 Urobilinogen Ql (U) Normal mg/dl Normal [facility] COV19 Rapidon 03-13-2020 Employed in healthcare? No Normal [facility] Comment on above: Performed By: #### C [id number] #### [place] [address] Group care resident? No Normal [facility] Comment on above: Performed By: #### C [id number] #### [place] [address] Hospitalized due to COVID-19? No [facility] Comment on above: Performed By: #### C [id number] #### [place] [address] In ICU? No Normal [facility] Comment on above: Performed By: #### C [id number] #### [place] [id number] Is this the first test for COVID? Unknown [facility] Comment on above: Performed By: #### C [id number] #### [place] [address] status? Not Applicable [facility] Comment on above: Performed By: #### C [id number] #### [place] [address] Reason for Rapid Test Inpatient Normal [facility] Comment on above: Performed By: #### C [id number] #### [place] [id number] SARS-CoV-2 RNA Detection Negative Normal Negative [facility] Comment on above: Result Comment: The 2019 novel coronavirus SARS-CoV-2 target nucleic acids are not detected. This test is for the detection of SARS-CoV-2 RNA. Positive results are indicative of active infection with SARS-CoV-2. Positive results do not rule out bacterial infection or co-infection with other viruses. Negative results should be treated as presumptive and, if inconsistent with clinical signs and symptoms or necessary for patient management, should be tested with an alternative molecular assay.Negative results do not preclude SARS-CoV-2 infection and should not be used as the sole basis for treatment or other patient management decisions. Clinical correlation with patient history and other diagnostic information is necessary to determine patient infection status. ADDITIONAL INFORMATION: Testing was performed using the ID NOW COVID-19 test by [employer], which has received Emergency Use Authorization (EUA) by the U.S. Food and Drug Administration. The [employer] ID NOW COVID-19 test performs best when patients are tested within the first 7 days of symptom onset. Results should be interpreted with caution for asymptomatic patients or those tested outside the 7 day target. Refer to CDC guidelines for further testing algorithms. Fact sheets for this Emergency Use Authorization (EUA) assay can be found at the following links: For Healthcare Providers: https://www.fda.gov/media/946274/download For Patients: https://www.fda.gov/media/848620/download Performed By: #### C [id number] #### [address] [address] Symptomatic as defined by CDC? No Normal [facility] Comment on above: Performed By: #### C [id number] #### [address] [address] ED Clinical Summaryon 2020 ED Clinical Summary (Inserted Image. Joyce ble to display) [address] [address] ED Clinical Summary Person Information Name: Rob Maxwell [facility] Age: 34 Years : 1985 Sex: Male PCP: Marital Status: Single Phone: Race: White Ethnicity: Not or Language: Bulgarian Visit Reason: Medical problem - minor; Medical problem Acuity: 5 Enc Type: Emergency Med Service: Emergency Medicine Arrival: 03/12/2020 21:35:54 Discharge: 03/12/2020 22:03:00 LOS: 000 00:28 Checkin: 03/12/2020 21:35:54 Checkout: 03/12/2020 22:03:00 Dispo Type: Home or Self Care Address: [address] [place] [address] Provider Notes: History of Present Illness Patient is a 34-year-old male that presented to the emergency department needing a Covid test for work. ?Patient states that?he may have been exposed by a coworker approximately a week ago. ?He was well informed today that he needs a test to return to work. ?He has not had any symptoms including cough, congestion, shortness of breath, chest pain or palpitations, nausea, vomiting, or diarrhea. ?He denies any fevers or chills. ?Patient does smoke but does not have any other comorbidities. Review of Systems As reviewed in the HPI. All other systems reviewed are negative or normal. Physical Exam CONSTITUTIONAL: [well appearing in no acute distress] SKIN: [Warm, dry, and intact without rash] EYES: [extraocular movements are grossly intact, clear conjunctiva] HENT: [Normocephalic, atraumatic, moist mucus membranes] NECK: [no obvious swelling, normal range of motion] PULMONARY: [normal chest rise and fall, no respiratory distress or stridor CARDIOVASCULAR: [regular rate, distal extremities are warm and well perfused] NEUROLOGIC: [normal speech, moves all extremities] MUSCULOSKELETAL: [no gross deformities, atraumatic] PSYCHIATRIC: [normal mood and affect] Diagnosis: 1:COVID-19 virus test result unknown Problems No Problems Documented Smoking Status: Smoking Status 10 or more cigarettes (1/2 pack or more)/day in last 30 days Functional Status: Sensory Deficits: History of Falls: Mobility Assistance Prior to Admission: ADLs: Current Level of Assistance for Self-Care/Mobility: Cognitive Status: Allergies No Known Medication Allergies Laboratory or Other Results This Visit (last charted value for your 03/12/2020 visit) No Laboratory or Other Results This Visit Measurements: Height: Weight: 79.9 kg Blood Pressure: /95 mmHg BMI: Procedures No Procedures Documented Immunizations No Immunizations Documented This Visit Final Med List: No Medications Documented Care Team Members: Attending Physician: Kirt Lucio PA-C Consulting Physician: Referring Physician: Provider Role Assigned Unassigned Francoise Bee ED Nurse 03/12/2020 21:42:37 Kirt Lucio PA-C ED MidLevel 03/12/2020 21:45:29 Follow up: With: Address: When: PCP Within 3 to 5 days Comments: For re-evaluation of symptoms. With: Address: When: ED , only if needed Comments: For any new, worsening, or persistent symptoms. Discharge Orders: Discharge Patient 03/12/20 21:53:00 EST, Discharge to Home, Self, COVID-19 virus test result unknown Patient Education Information: Understanding Bloodborne Pathogens [facility] Poison Help line: . [facility] Hotline: [place] Tobacco Quit Line: [place], [place]) [address]: [phone] [place], [place]) [address]: [phone] [facility] [address] [place], [place]: [phone] [facility] ED Note-Physicianon 03-12-19 21 ED Note-Physician Chief Complaint pt needs a covid test for work History of Present Illness Patient is a 34-year-old male that presented to the emergency department needing a Covid test for work. Patient states that he may have been exposed by a coworker approximately a week ago. He was well informed today that he needs a test to return to work. He has not had any symptoms including cough, congestion, shortness of breath, chest pain or palpitations, nausea, vomiting, or diarrhea. He denies any fevers or chills. Patient does smoke but does not have any other comorbidities. Review of Systems As reviewed in the HPI. All other systems reviewed are negative or normal. Physical Exam CONSTITUTIONAL: [well appearing in no acute distress] SKIN: [Warm, dry, and intact without rash] EYES: [extraocular movements are grossly intact, clear conjunctiva] HENT: [Normocephalic, atraumatic, moist mucus membranes] NECK: [no obvious swelling, normal range of motion] PULMONARY: [normal chest rise and fall, no respiratory distress or stridor CARDIOVASCULAR: [regular rate, distal extremities are warm and well perfused] NEUROLOGIC: [normal speech, moves all extremities] MUSCULOSKELETAL: [no gross deformities, atraumatic] PSYCHIATRIC: [normal mood and affect] Vitals & Measurements T: 36.5 ?C (Oral) HR: 97 (Peripheral) RR: 16 BP: 145/95 SpO2: 95% HT: 182 cm WT: 79.9 kg (Dosing) Additional Vitals Peripheral Pulse Rate: 97 bpm Medical Decision Making Patient is a 34-year-old healthy male that does smoke that presented to the emergency department needing a Covid swab. He may have been exposed about a week ago but has been asymptomatic. He is hemodynamically stable and well-appearing in the emergency department SPO2 is 95% on room air and he is not showing any signs of respiratory distress. Covid test pending, instructed to self quarantine until results return. Return precautions including severe shortness of breath, chest pain/palpitations, lightheadedness/dizziness, syncope, severe fever or chills not resolving with antipyretics, weakness, or other concerning symptoms were discussed with the patient. Patient verbalized understanding was discharged from the ED in a stable state with all questions answered. Assessment/Plan 1. COVID-19 virus test result unknown Ordered: Discharge Patient Orders: SARS-COVID19 RNA Rapid Refresh vitals and sections below: Problem List/Past Medical History Ongoing No qualifying data Historical No qualifying data Medications Inpatient No active inpatient medications Home No active home medications Allergies No Known Medication Allergies Social History Alcohol Never Substance Abuse Denies All Tobacco 10 or more cigarettes (1/2 pack or more)/day in last 30 days Use:. Cigarettes, 1 per day. Packs Diagnostic Results XRay No qualifying data available (XRay) Computerized Tomagraphy No qualifying data available (CT) Ultrasound No qualifying data available (Ultrasound) Magnetic Resonance Imaging No qualifying data available (MRI) Electronically signed by Kirt Lucio 03/12/20 21:55 EST Normal [facility] ED Clinical Summaryon 2019 ED Clinical Summary (Inserted Image. Joyce ble to display) [address] [address] ED Clinical Summary Person Information Name: Rob Maxwell [facility] Age: 34 Years : 1985 Sex: Male PCP: Marital Status: Single Phone: Race: White Ethnicity: Not or Language: Bulgarian Visit Reason: Dental pain; Dental pain or trauma Acuity: 4 Enc Type: Emergency Med Service: Emergency Medicine Arrival: 10/17/2019 01:23:27 Discharge: 10/17/2019 02:07:00 LOS: 000 00:44 Checkin: 10/17/2019 01:23:27 Checkout: 10/17/2019 02:07:00 Dispo Type: Home or Self Care Address: [address] [place] [address] Provider Notes: History of Present Illness ? Patient presents to the emergency department because of dental pain.? He has multiple teeth that have dental caries and dental decay?but the one that bothers him is the left lower first molar. ?It is decayed to the pulp?and there is mild left facial swelling.? There is no obvious abscess formation at this time and there is no associated gingival?inflammation and there is no gingivitis at this point.? Patient has no fevers and no constitutional symptoms and has no jaw pain.? And has no other symptomatology. ?Clinically looks well in no distress with an otherwise normal exam. Review of Systems As reviewed in the HPI. All other systems reviewed are negative or normal. ? Physical Exam CONSTITUTIONAL: [no apparent distress, well appearing] SKIN: [warm, dry, no jaundice, hives or petechiae] EYES: [pupils are equally round, extraocular movements intact without nystagmus, clear conjunctiva, non-icteric sclera] HENT: [normocephalic, atraumatic, moist mucus membranes, oropharynx clear without exudates except multiple dental?caries?in multiple teeth.] NECK: [Nontender and supple with no nuchal rigidity, no lymphadenopathy, full range of motion] PULMONARY: [clear to auscultation without wheezes, rhonchi, or rales, normal excursion, no accessory muscle use and no stridor] CARDIOVASCULAR: [regular rate, rhythm, normal S1 and S2. No appreciated murmurs. Strong radial pulses with intact distal perfusion] GASTROINTESTINAL: [soft, non-tender, non-distended, no palpable masses, no rebound or guarding] GENITOURINARY: [No costovertebral angle tenderness to palpation] LYMPHATICS: [no edema in lower extremities, no lymphadenopathy] MUSCULOSKELETAL: [Extremities are nontender to palpation and have no gross deformity, no edema, redness, or swelling] NEUROLOGIC: [alert and oriented x 3, GCS 15, normal mentation and speech. Moves all extremities x 4 without motor or sensory deficit . PSYCHIATRIC: [normal mood and affect, thought process is clear and linear] Diagnosis: 1:Pain due to dental caries Problems No Problems Documented Smoking Status: Smoking Status 10 or more cigarettes (1/2 pack or more)/day in last 30 days Functional Status: Sensory Deficits: History of Falls: Mobility Assistance Prior to Admission: ADLs: Current Level of Assistance for Self-Care/Mobility: Cognitive Status: Allergies No Known Medication Allergies Laboratory or Other Results This Visit (last charted value for your 10/17/2019 visit) No Laboratory or Other Results This Visit Measurements: Height: Weight: 78.4 kg Blood Pressure: /87 mmHg BMI: Procedures No Procedures Documented Immunizations No Immunizations Documented This Visit Final Med List: New Medications [facility] [facility], [address] [place], [place] [id number], [phone] amoxicillin (amoxicillin 500 mg oral capsule) 1 Capsules Oral (given by mouth) 3 times a day for 10 Days. Refills: 0. Last Dose: naproxen (naproxen 500 mg oral delayed release tablet) 1 Tabs Oral (given by mouth) 2 times a day for 10 Days. Refills: 0. Last Dose: [facility] [facility] [address] [place], [place] [id number], [phone] amoxicillin (amoxicillin 500 mg oral capsule) 1 Capsules Oral (given by mouth) 3 times a day for 10 Days. Refills: 0. naproxen (naproxen 500 mg oral delayed release tablet) 1 Tabs Oral (given by mouth) 2 times a day for 10 Days. Refills: 0. Care Team Members: Attending Physician: Nick BLACK, Bear Barros Consulting Physician: Referring Physician: Provider Role Assigned Unassigned Giselle Meade ED Nurse 10/17/2019 01:26:24 Nick BLACK, Bear Barros ED Provider 10/17/2019 01:38:42 Follow up: With: Address: When: Please follow-up with a dentist as we discussed. You may return to this ED if your symptoms get worse at any point. Discharge Orders: Discharge Patient 10/17/19 1:55:00 EDT, Discharge to Home, Self, Pain due to dental caries Patient Education Information: Dental Pain [facility] Poison Help line: . [facility] Hotline: [place] Tobacco Quit Line: [facility] ([place], [place]) [address]: [phone] [place], [place]) [address]: [phone] [facility] [address] [place], [place]: [phone] Normal [facility] ED Note-Physicianon 10-17-19 ED Note-Physician Chief Complaint dental pain starting tonight History of Present Illness Patient presents to the emergency department because of dental pain. He has multiple teeth that have dental caries and dental decay but the one that bothers him is the left lower first molar. It is decayed to the pulp and there is mild left facial swelling. There is no obvious abscess formation at this time and there is no associated gingival inflammation and there is no gingivitis at this point. Patient has no fevers and no constitutional symptoms and has no jaw pain. And has no other symptomatology. Clinically looks well in no distress with an otherwise normal exam. Review of Systems As reviewed in the HPI. All other systems reviewed are negative or normal. Physical Exam CONSTITUTIONAL: [no apparent distress, well appearing] SKIN: [warm, dry, no jaundice, hives or petechiae] EYES: [pupils are equally round, extraocular movements intact without nystagmus, clear conjunctiva, non-icteric sclera] HENT: [normocephalic, atraumatic, moist mucus membranes, oropharynx clear without exudates except multiple dental caries in multiple teeth.] NECK: [Nontender and supple with no nuchal rigidity, no lymphadenopathy, full range of motion] PULMONARY: [clear to auscultation without wheezes, rhonchi, or rales, normal excursion, no accessory muscle use and no stridor] CARDIOVASCULAR: [regular rate, rhythm, normal S1 and S2. No appreciated murmurs. Strong radial pulses with intact distal perfusion] GASTROINTESTINAL: [soft, non-tender, non-distended, no palpable masses, no rebound or guarding] GENITOURINARY: [No costovertebral angle tenderness to palpation] LYMPHATICS: [no edema in lower extremities, no lymphadenopathy] MUSCULOSKELETAL: [Extremities are nontender to palpation and have no gross deformity, no edema, redness, or swelling] NEUROLOGIC: [alert and oriented x 3, GCS 15, normal mentation and speech. Moves all extremities x 4 without motor or sensory deficit . PSYCHIATRIC: [normal mood and affect, thought process is clear and linear] Vitals & Measurements T: 36.8 ?C (Oral) RR: 16 BP: 136/87 SpO2: 96% HT: 182.9 cm DOSE WT: 78.4 kg Additional Vitals Peripheral Pulse Rate: 90 bpm Procedure No qualifying data available. ASA Documentation Medical Decision Making Patient with multiple dental caries with mild facial swelling on the left side uncomplicated at this time but has potential to get complicated for this reason he is given antibiotics and anti-inflammatory Naprosyn and asked to follow-up with a dentist as soon as he can possibly tomorrow. He is agreeable with the plan and discharge. I did ask him to come back if he notices any abscess formation or any other complication. He is agreeable with the plan and discharged. Assessment/Plan 1. Pain due to dental caries Ordered: amoxicillin, 1 caps, Oral, TID, X 10 days, # 30 caps, 0 Refill(s), 10/27/19 1:55:00 EDT, Pharmacy: [facility] [address] naproxen, 1 tabs, Oral, BID, X 10 days, # 20 tabs, 0 Refill(s), 10/27/19 1:55:00 EDT, Pharmacy: [facility] [address] Discharge Patient Orders: amoxicillin, 500 mg, Oral, Cap, Once, First Dose: 10/17/19 1:53:00 EDT, Stop Date: 10/17/19 1:53:00 EDT, STAT, Dispense From Location: [facility], Dental Infection/Abscess naproxen, 500 mg, Oral, Tab, Once, First Dose: 10/17/19 1:53:00 EDT, Stop Date: 10/17/19 1:53:00 EDT, STAT, Dispense From Location: [facility] Problem List/Past Medical History Ongoing No qualifying data Historical No qualifying data Medications Home No active home medications Inpatient amoxicillin, 500 mg, Oral, Once Naprosyn, 500 mg, Oral, Once Prescriptions amoxicillin 500 mg oral capsule, 500 mg, 1 caps, Oral, TID naproxen 500 mg oral delayed release tablet, 500 mg, 1 tabs, Oral, BID Allergies No Known Medication Allergies Social History Alcohol Never Substance Abuse Denies All Tobacco 10 or more cigarettes (1/2 pack or more)/day in last 30 days Use:. Cigarettes, 1 per day. Packs Diagnostic Results XRay No qualifying data available (XRay) Computerized Tomagraphy No qualifying data available (CT) Ultrasound No qualifying data available (Ultrasound) Magnetic Resonance Imaging No qualifying data available (MRI) Electronically signed by Bear Romero MD 10/17/19 01:59 EDT Normal [facility] ED Clinical Summaryon 2019 ED Clinical Summary (Inserted Image. Joyce ble to display) [facility] [address] [place] [address] ED Clinical Summary Person Information Name: Rob Maxwell/[facility] Age: 34 Years : 1985 Sex: Male PCP: Marital Status: Single Phone: Race: White Ethnicity: Not or Language: Bulgarian Visit Reason: Toothache; Mouth pain Acuity: 4 Enc Type: Emergency Med Service: Emergency Medicine Arrival: 09/11/2019 10:58:00 Discharge: 09/11/2019 11:16:00 LOS: 000 00:18 Checkin: 09/11/2019 10:58:00 Checkout: 09/11/2019 11:16:00 Dispo Type: Home or Self Care Address: [address] [place] [id number] Provider Notes: History of Present Illness The patient is a 34-year-old male presenting for evaluation of left lower dental pain.? States that he has experienced intermittent dental pain for over a year.? Noticed a dental abscess 1 week ago in which he made an incision himself and drain the abscess.? Symptoms appear to improve however returned over the past 2 days.? Reports pain that is achy, 2 in severity.? States that he did take an old prescription of amoxicillin last week however no longer has this prescription.? Does not have an upcoming appointment with the dentist.? Pain is most severe with palpation of mastication.? Is still able to tolerate both solids and liquids with little discomfort.? Is otherwise healthy.? Denies any chest pain, dyspnea, nausea, vomiting, fever, chills, weakness.? No other complaints at this time. Review of Systems As reviewed in the HPI. All other systems reviewed are negative or normal.? Physical Exam Constitutional: [Alert, awake, no apparent distress, nontoxic] Head: [Normocephalic, atraumatic] Eyes: [PERRL, extraocular movements intact, clear conjunctiva] ENT: [Ear canals-normal, clear. TMs- normal, no erythema. Nose-normal, no drainage, septum midline. Mouth-Multiple dental caries noted throughout, dental abscess noted near teeth #19 and 20, marked tenderness to palpation, no active drainage, fractured tooth. . Posterior pharynx-airway patent, no erythema, exudate, or masses. Uvula midline.] Neck: [Neck is supple with FROM, no nuchal rigidity, no cervical spinal tenderness. Trachea is midline. No lymphadenopathy. No meningeal signs.] Chest: [Appears normal, symmetrical rise, no tenderness to palpation.] Cardiovascular: [Regular rate and rhythm, no appreciated murmurs, normal S1 and S2, strong radial pulses w/ intact distal perfusion] Respiratory: [ Lungs clear to auscultation w/o wheezes, rhonchi, or rales, normal excursion, no accessory muscle, no stridor] Skin: [[place], warm, dry. No rashes, cellulitis, or petechiae. Normal turgor.] Neuro: [Alert and oriented X 3, GCS 15. Normal mentation and speech. Moves all extremities w/o motor or sensory deficit, gait is stable, strength normal in all extremities] Diagnosis: 1:Pain, dental; 2:Dental abscess Problems No Problems Documented Smoking Status: Smoking Status 10 or more cigarettes (1/2 pack or more)/day in last 30 days Functional Status: Sensory Deficits: History of Falls: Mobility Assistance Prior to Admission: ADLs: Current Level of Assistance for Self-Care/Mobility: Cognitive Status: Allergies No Known Medication Allergies Laboratory or Other Results This Visit (last charted value for your 09/11/2019 visit) No Laboratory or Other Results This Visit Measurements: Height: Weight: 76.2 kg Blood Pressure: /90 mmHg BMI: Procedures No Procedures Documented Immunizations No Immunizations Documented This Visit Final Med List: New Medications Printed Prescriptions amoxicillin (amoxicillin 875 mg oral tablet) 1 Tabs Oral (given by mouth) 2 times a day for 10 Days. Refills: 0. Last Dose: Printed Prescriptions amoxicillin (amoxicillin 875 mg oral tablet) 1 Tabs Oral (given by mouth) 2 times a day for 10 Days. Refills: 0. Care Team Members: Attending Physician: Tasha Cuevas PA-C Consulting Physician: Referring Physician: Provider Role Assigned Unassigned Tasha Cuevas PA-C ED MidLevel 09/11/2019 11:01:46 Kay Corbett ED Nurse 09/11/2019 11:09:38 Follow up: With: Address: When: Dentist Within 3 to 5 days With: Address: When: ER Comments: For worsening symptoms, fever greater than 102, intolerable pain. Discharge Orders: Discharge Patient 09/11/19 11:04:00 EDT, Discharge to Home, Self Patient Education Information: Dental Abscess [facility] Poison Help line: . [facility] Hotline: [place] Tobacco Quit Line: [place], [place]) [address]: [phone] [place], [place]) [address]: [phone] [facility] [address], [place]: [phone] [facility] ED Note-Physicianon 09-11-19 ED Note-Physician Chief Complaint I have an abscessed tooth, having pain on th left side of my mouth, noticed it a week ago" History of Present Illness The patient is a 34-year-old male presenting for evaluation of left lower dental pain. States that he has experienced intermittent dental pain for over a year. Noticed a dental abscess 1 week ago in which he made an incision himself and drain the abscess. Symptoms appear to improve however returned over the past 2 days. Reports pain that is achy, 2 in severity. States that he did take an old prescription of amoxicillin last week however no longer has this prescription. Does not have an upcoming appointment with the dentist. Pain is most severe with palpation of mastication. Is still able to tolerate both solids and liquids with little discomfort. Is otherwise healthy. Denies any chest pain, dyspnea, nausea, vomiting, fever, chills, weakness. No other complaints at this time. Review of Systems As reviewed in the HPI. All other systems reviewed are negative or normal. Physical Exam Constitutional: [Alert, awake, no apparent distress, nontoxic] Head: [Normocephalic, atraumatic] Eyes: [PERRL, extraocular movements intact, clear conjunctiva] ENT: [Ear canals-normal, clear. TMs- normal, no erythema. Nose-normal, no drainage, septum midline. Mouth-Multiple dental caries noted throughout, dental abscess noted near teeth #19 and 20, marked tenderness to palpation, no active drainage, fractured tooth.. Posterior pharynx-airway patent, no erythema, exudate, or masses. Uvula midline.] Neck: [Neck is supple with FROM, no nuchal rigidity, no cervical spinal tenderness. Trachea is midline. No lymphadenopathy. No meningeal signs.] Chest: [Appears normal, symmetrical rise, no tenderness to palpation.] Cardiovascular: [Regular rate and rhythm, no appreciated murmurs, normal S1 and S2, strong radial pulses w/ intact distal perfusion] Respiratory: [ Lungs clear to auscultation w/o wheezes, rhonchi, or rales, normal excursion, no accessory muscle, no stridor] Skin: [[place], warm, dry. No rashes, cellulitis, or petechiae. Normal turgor.] Neuro: [Alert and oriented X 3, GCS 15. Normal mentation and speech. Moves all extremities w/o motor or sensory deficit, gait is stable, strength normal in all extremities] Vitals & Measurements T: 36.5 ?C (Oral) RR: 16 BP: 134/90 SpO2: 98% HT: 182.9 cm DOSE WT: 76.2 kg Additional Vitals Peripheral Pulse Rate: 95 bpm Procedure No qualifying data available. ASA Documentation Medical Decision Making The patient presents for evaluation of dental pain. On physical exam he is hemodynamically stable, nontoxic-appearing, afebrile, dental abscess noted. We will treat with amoxicillin and discharged home with this medication. Patient is offered pain control however decides against it. We will continue jrok-rig-jepajov medication for pain relief. Is educated to follow-up with a dentist. Return precautions given including any worsening symptoms, an increase or change in their pain, persistent vomiting, bleeding, fever or inability to take oral fluids. They expressed understanding that follow-up is essential, agreed with this plan and rationale, their questions were answered and felt comfortable going home. The results of pertinent diagnostic studies and exam findings were discussed. The patient?s provisional diagnosis and plan of care were discussed with the patient and present family. The patient and/or present family expressed understanding of the diagnosis and plan. The nurse was instructed to provide written instructions and appropriate follow-up information. The patient understands their need and responsibility to obtain additional follow-up as instructed. The risks of medications administered and prescribed were discussed with the patient and family present. Assessment/Plan 1. Pain, dental 2. Dental abscess Orders: amoxicillin, 1 tabs, Oral, BID, X 10 days, # 20 tabs, 0 Refill(s), 09/21/19 11:05:00 EDT amoxicillin, 875 mg, Oral, Tab, Once, First Dose: 09/11/19 11:04:00 EDT, Stop Date: 09/11/19 11:04:00 EDT, STAT, Dispense From Location: [id number], Dental Infection/Abscess Discharge Patient Problem List/Past Medical History Ongoing No qualifying data Historical No qualifying data Medications Home No active home medications Inpatient amoxicillin, 875 mg, Oral, Once Prescriptions amoxicillin 875 mg oral tablet, 875 mg, 1 tabs, Oral, BID Allergies No active allergies Diagnostic Results XRay No qualifying data available (XRay) Computerized Tomagraphy No qualifying data available (CT) Ultrasound No qualifying data available (Ultrasound) Magnetic Resonance Imaging No qualifying data available (MRI) Electronically signed by Mason Tasha RIVERO 09/11/19 11:09 EDT Normal [facility] EMERGENCY REPORTon 8 EMERGENCY REPORT [facility] EM ERGENCY ROOM REPORT NAME ACCOUNT SEX AGE ADMIT DISCHARGE PT MED. RECORD# NUMBER DATE DATE TYPE TOMEKA, [id number] 11/04/17 11/05/17 3 ROB [id number] ROOM: ER DATE OF : 1985 DICTATING PHYSICIAN: Viridiana Hunt CHIEF COMPLAINT: Dental pain. HISTORY OF PRESENT ILLNESS: This is a 32-year-old gentleman with poor dental care, multiple dental caries, presenting for evaluation of tooth pain. Patient states symptoms have been going on for "a while" and he has been previously seen and evaluated at an outside emergency department. He states when he was initially evaluated, he had a nerve block done, was provided a prescription and told to follow up with a dentist. He states that the pain went away so he did not do this, he did not ever fill the antibiotic. The patient states that over the last day or so, his symptoms have progressively worsened. He states that he has 10 out of 10 pain to the left upper jaw, localized around teeth 12, 13 and 14. He states that pain is throbbing, shooting into his head. He states that he knows this is not infected and it is just the irritated nerve and he is at the emergency department today to "get a shot of Novocain." Patient denies fevers or chills. He states that pain is worse with chewing. He states he has been taking Motrin at home without relief of symptoms. He denies any neck pain, stiffness, chest pain or shortness of breath. Denies any abdominal pain, nausea or vomiting. PAST MEDICAL HISTORY: Significant for multiple dental caries. MEDICATIONS: Per medication reconciliation list. ALLERGIES: This patient has no known drug allergies. PHYSICAL EXAMINATION: Well-appearing male, sitting comfortably on a cot, noted to be in no acute distress. He is hemodynamically stable and afebrile. Pupils are equal, round, reactive to light and extraocular movements are intact. Nares are clear bilaterally without septal hematoma. Tympanic membranes are clear bilaterally. Patient with mild tenderness to palpation over the left maxillary sinus. He has multiple dental caries and missing teeth, there is a fractured tooth estimated to be the 13th tooth at this time with tenderness to palpation. No significant edema or erythema of the surrounding gum, no area of fluctuance, no obvious drainage. Roof of mouth is without area of swelling or fluctuance. Floor of mouth is soft, no swelling, no elevation of tongue. No evidence of trismus or malocclusion. No signs concerning for Chris's angina. Neck without cervical lymphadenopathy, full range of motion without eliciting pain. Heart is regular rate and rhythm, lungs are clear to auscultation. Abdomen is soft, nondistended and nontender on palpation. Patient moving all 4 extremities without focal deficit. Patient has good Page 1 of 2 ROB MAXWELL Emergency Room Report peripheral pulses and capillary refill. DIAGNOSTIC DATA: None. EMERGENCY DEPARTMENT COURSE AND TREATMENT: This is a 32-year-old gentleman with known dental caries and missing teeth presenting for evaluation of tooth pain. On initial evaluation, patient with obvious fractured tooth at site of pain. He is afebrile, nontoxic appearing and in no acute distress. I discussed with him recommendation for pain control and need for definitive management with dentistry, which he was agreeable to. He did undergo a nerve block, and infraorbital nerve block on the left side by myself with bupivacaine. He noted immediate relief of his symptoms of pain. I did discuss need for antibiotic therapy and close outpatient follow up with dentistry. He was started on penicillin 500 mg 4 times per day, first dose given in the emergency department and prescription provided for the remainder of the course. He is provided multiple resources for outpatient dentistry. Patient stated his understanding with this plan. Concerning symptoms to prompt reevaluation in the emergency department were discussed, all questions answered. Patient was discharged home in stable condition at this time. DIAGNOSES: 1. Dental caries. 2. Fractured tooth. Dictated By: Viridiana Hunt MD 11/05/17 03:27 JOB #: [id number] Transcribed By: mary 11/05/17 10:39 Electronically signed by: E-SIGN: DR. VIRIDIANA HUNT M.D. 11/14/17 03:17 Page 2 of 2 [facility] ----[facility] ([id number]) 1985 [facility] Department06/21/17 12:00 PM OLLIE FISHER (YONNY) WS During your visit today, we recorded the following information about you: Temperature Pulse Respiration Blood pressure 97.9 degrees 95/minute 16/minute 130/74 Weight 71.7 kgOllie Fisher APRN.CNP 06/21/2017 12:24 PM SignedSubjectiveHPIHPI Rob Maxwell is a 31 year old male who presents today for CC of itchyrash. This started 2 weeks ago. Has tried otc treatment. Symptoms areworsened by nothing. 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.Lesions on right arm improving, abdomen/torso severe currently.noone that lives with patient have similar symptoms..Patient presents with:poison joelle: x 2 weeks on arms and torsoNo past medical history on file.No past surgical history on file.ALLERGIES Patient has no known allergies.MEDICATIONS No prescriptions on file.No family history on file.Social HistorySubstance Use Topics- Smoking status: Current Every Day Smoker- Smokeless tobacco: Never Used- Alcohol use Not on fileReview of SystemsConstitutional: Negative for chills and fever.Skin: Positive for itching and rash (Positive for clear, watery drainage.Denies warmth and purulent drainage. ).ObjectiveBlood pressure 130/74, pulse 95, temperature 36.6 ?C (97.9 ?F), temperaturesource Tympanic, resp. rate 16, weight 71.7 kg (158 lb).Physical ExamConstitutional: He is oriented to person, place, and time and well-developed,well-nourishe d, and in no distress. Non-toxic appearance. He does not have asickly appearance. No distress.HENT:Head: Normocephalic and atraumatic.Neurological: He is alert and oriented to person, place, and time.Skin: Skin is warm, dry and intact. Rash noted. He is not diaphoretic.Ruptured/scabbed lesions, mostly with linear distribution. No abdomen few areasbeefy red/warm, concerns for secondary infection. ASSESSMENT/PLAN:1. Contact dermatitis, unspecified contact dermatitis type, unspecified trigger- ICD9: 692.9, ICD10: L25.9 (primary diagnosis)- Oral Steriod tx -Prednisone taper- Topical steriod tx with Rx for steriod cream/ointment- see orders- discussed skin care of rash- follow up if symptoms persist or worsen.- TRIAMCINOLONE ACETONIDE 0.1 % TOPICAL CREAM- PREDNISONE 10 MG TABLET2. Secondary infection of skin - ICD9: 686.8, ICD10: L08.89-will cover with kephlex, discussed skin care-if worsening symptoms/ follow up- CEPHALEXIN 500 MG CAPSULEPrescription instructions reviewed with patient as applicable. Patient advisedif symptoms do not improve or if symptoms worsen sooner, to contact the officefor further evaluation by their primary care physician. Potential red flagsymptoms discussed with the patient. Reviewed appropriate action plan to takeif red flag symptoms occur. Patient agreeable to treatment plan.Ollie Fisher APRN.Bia Fisher APRN.CNP 06/21/2017 12:11 PM SignedCONTACT DERMATITISWhat is contact dermatitis?Contact dermatitis is inflammation of the skin (rash) that may result when theskin is touched by irritants or substances that cause an allergic reaction.Contact dermatitis can occur from exposure to many different compounds foundboth in the home and at work. There are two types of contact dermatitis:1. Allergic contact dermatitis -- occurs when skin, which has become sensitizedto a certain substance (allergen), comes in contact with that substance again2. Irritant contact dermatitis -- occurs when the skin is exposed to a mildirritant (such as detergent or solvents) repeatedly over a long period of timeor a strong irritant (such as acid, alkali, solvent, strong soap or detergent),which can cause immediate skin damageCommon sources of allergic contact dermatitisNot everyone reacts to allergens. However, some people will react to anallergen which they had previously tolerated for many years. Skin can becomeallergic to a substance after many exposures or after just one exposure. Mostpeople will have an allergic reaction to poison joelle after one exposure, forinstance. This is a delayed skin reaction that typically develops 12 to 72hours after exposure.Common sources of allergic contact dermatitis include:Nickel (a common metal used in jewelry) and other metals. Nickel has beenreported to cause contact dermatitis in up to 10 percent of women. Gold is alsobecoming a widespread allergen. This type of allergic contact dermatitis canbegin with intermittent rashes under earrings or other jewelry.Fragrances -- for example, those found in perfumes, soaps, lotions, andshampoosCosmeticsTopical medications such as antibiotics or anti-itch preparations -- thesecause worsening of the problem and are often misinterpreted as infectionPreservatives, which keep topical products from spoilingSunscreens -- commonly cause a hive-like rash that can appear hours or daysafter sun exposureRubber ingredients -- common source of work-related allergy. Rubber can causeimmediate allergic reactions, such as itching, burning, or welts. Some peopleexperience itching and tearing eyes or even shortness of breath.Common sources of irritant contact dermatitisDetergents, soaps, chief embalmer, waxes and chemicals are substances that canirritate the skin. They can wear down the oily, protective layer on skin'ssurface and lead to irritant contact dermatitis. Irritant contact dermatitis ismost common among people who regularly work with strong chemicals, such asrestaurant, maintenance, and chemical workers.Are certain occupations at greater risk?Some occupations have more exposure to chemicals or substances that can resultin sensitization and cause allergic contact dermatitis. These include dentalworkers, health care workers, florists, hairdressers, machinists, andphotographers among many others.What are the symptoms of contact dermatitis?Contact dermatitis symptoms can range from mild redness and dryness to severepain and peeling that can be disabling.Allergic contact dermatitisReddening of skin (either in patches or all over the body)Intermittent dry, scaly patches of skinBlisters that oozeBurning or itching that is usually intense without visible skin sores (lesions)Swelling in the eyes, face, and genital areas (severe cases)HivesSun sensitivityDarkened, "leathery" and cracked skinAllergic contact dermatitis can be very difficult to distinguish from otherrashes.Irritant contact dermatitisMild swelling of skinStiff, tight feeling skinDry, cracking skinBlistersPainful ulcers on the skinSymptoms vary depending on the cause of dermatitis.How can I know if I have contact dermatitis?If you have a skin rash that won't go away, visit your health care provider. Ifhe or she suspects allergic contact dermatitis, patch testing may be performed.In this test, small samples of chemicals are placed on an area of skin to seeif a rash develops. There are no needles or pricking of the skin. The areas ofthe skin are then evaluated after 48 hours and again at 96 hours or one week.The advantage of patch testing is that the allergens can be identified and yourhealth care provider can effectively treat the rash. This avoids the need forchronic medications that have many potential side effects.There are no tests that can be done for irritant contact dermatitis. Tell yourhealth care provider about any irritating substances or chemicals that youregularly come into contact with (including cosmetics, lotions, and nailpolish).With either type of contact dermatitis, you can avoid substances you suspectand see if the rash goes away.How is contact dermatitis treated?The form of treatment will depend on the cause of contact dermatitis. Commontreatments include: cortisone-type creams, antihistamines, lotions and creamsor oatmeal baths (to relieve itching).How can I prevent contact dermatitis?For allergic contact dermatitis:Avoid contact with substances that cause the skin rash.Wash any area that comes into contact with allergic substances.Learn to recognize poison oak and poison joelle.For irritant contact dermatitis:Wear cotton gloves under rubber gloves for all wet work. Or, use petroleumjelly to the protect the skin. Reapply the petroleum jelly two or three times aday and after washing your hands.Avoid contact with substances that irritate the skin.Use mild soaps.Use hand creams and lotions frequently.? Copyright 0516-8412 The [facility] [place]. All rights reserved This information is provided by the [facility] and is not intended toreplace the medical advice of your doctor or health care provider. Pleaseconsult your health care provider for advice about a specific medicalcondition. For additional written health information, please contact the HealthInformation Center at [facility] or toll-free extension [phone] or visit [email or web address] Thisdocument was last reviewed on: 12/10/2004index#[id number] Fisher APRN.[facility]Department [facility]sCity [phone] Provider: SELF [[id number]]Allergies As of Date: 06/21/2017(No Known Allergies)Date Reviewed: 06/21/2017Reviewed by: Ollie (Yonny) - Fully AssessedReason for Visit: poison joelle [Other] Cmt: x 2 weeks on arms and torsoPrimary Visit Diagnosis:Contact dermatitis, unspecified contact dermatitis type, unspecified trigger [L25.9] Other Visit Diagnosis:Secondary infection of skin [L08.89]Order(s):triamcinolo ne acetonide (KENALOG) 0.1 % creamApply 1 application to affected area three times daily. Apply sparingly to area for rash/itching.Disp: 80 gRfl: 1 predniSONE (DELTASONE) 10 mg tabletTake 4 tabs daily x 3 days, then 3 tabs x 3 days, 2 tabs x 3 days, then 1 tab x3 days with food.Disp: 30 tabletRfl: 0 cephALEXin (KEFLEX) 500 mg capsuleTake 1 capsule by mouth three times daily for 10 days.Disp: 30 capsuleRfl: 0Prescriptions as of 06/21/2017 Sig: TRIAMCINOLONE ACETONIDE 0.1 %* Apply 1 application to affect* PREDNISONE 10 MG TABLET Take 4 tabs daily x 3 days, t* CEPHALEXIN 500 MG CAPSULE Take 1 capsule by mouth three*Problem List As Of Date: 06/21/2017(None) Other instructions from your clinician: CONTACT DERMATITIS What is contact dermatitis? Contact dermatitis is inflammation of the skin (rash) that may result when the skin is touched by irritants or substances that cause an allergic reaction. Contact dermatitis can occur from exposure to many different compounds found both in the home and at work. There are two types of contact dermatitis: 1. Allergic contact dermatitis -- occurs when skin, which has become sensitized to a certain substance (allergen), comes in contact with that substance again 2. Irritant contact dermatitis -- occurs when the skin is exposed to a mild irritant (such as detergent or solvents) repeatedly over a long period of time or a strong irritant (such as acid, alkali, solvent, strong soap or detergent), which can cause immediate skin damage Common sources of allergic contact dermatitis Not everyone reacts to allergens. However, some people will react to an allergen which they had previously tolerated for many years. Skin can become allergic to a substance after many exposures or after just one exposure. Most people will have an allergic reaction to poison joelle after one exposure, for instance. This is a delayed skin reaction that typically develops 12 to 72 hours after exposure. Common sources of allergic contact dermatitis include: Nickel (a common metal used in jewelry) and other metals. Nickel has been reported to cause contact dermatitis in up to 10 percent of women. Gold is also becoming a widespread allergen. This type of allergic contact dermatitis can begin with intermittent rashes under earrings or other jewelry. Fragrances -- for example, those found in perfumes, soaps, lotions, and shampoos Cosmetics Topical medications such as antibiotics or anti-itch preparations -- these cause worsening of the problem and are often misinterpreted as infection Preservatives, which keep topical products from spoiling Sunscreens -- commonly cause a hive-like rash that can appear hours or days after sun exposure Rubber ingredients -- common source of work-related allergy. Rubber can cause immediate allergic reactions, such as itching, burning, or welts. Some people experience itching and tearing eyes or even shortness of breath. Common sources of irritant contact dermatitis Detergents, soaps, chief embalmer, waxes and chemicals are substances that can irritate the skin. They can wear down the oily, protective layer on skin's surface and lead to irritant contact dermatitis. Irritant contact dermatitis is most common among people who regularly work with strong chemicals, such as restaurant, maintenance, and chemical workers. Are certain occupations at greater risk? Some occupations have more exposure to chemicals or substances that can result in sensitization and cause allergic contact dermatitis. These include dental workers, health care workers, florists, hairdressers, machinists, and photographers among many others. What are the symptoms of contact dermatitis? Contact dermatitis symptoms can range from mild redness and dryness to severe pain and peeling that can be disabling. Allergic contact dermatitis Reddening of skin (either in patches or all over the body) Intermittent dry, scaly patches of skin Blisters that ooze Burning or itching that is usually intense without visible skin sores (lesions) Swelling in the eyes, face, and genital areas (severe cases) Hives Sun sensitivity Darkened, "leathery" and cracked skin Allergic contact dermatitis can be very difficult to distinguish from other rashes. Irritant contact dermatitis Mild swelling of skin Stiff, tight feeling skin Dry, cracking skin Blisters Painful ulcers on the skin Symptoms vary depending on the cause of dermatitis. How can I know if I have contact dermatitis? If you have a skin rash that won't go away, visit your health care provider. If he or she suspects allergic contact dermatitis, patch testing may be performed. In this test, small samples of chemicals are placed on an area of skin to see if a rash develops. There are no needles or pricking of the skin. The areas of the skin are then evaluated after 48 hours and again at 96 hours or one week. The advantage of patch testing is that the allergens can be identified and your health care provider can effectively treat the rash. This avoids the need for chronic medications that have many potential side effects. There are no tests that can be done for irritant contact dermatitis. Tell your health care provider about any irritating substances or chemicals that you regularly come into contact with (including cosmetics, lotions, and nail trinidadian). With either type of contact dermatitis, you can avoid substances you suspect and see if the rash goes away. How is contact dermatitis treated? The form of treatment will depend on the cause of contact dermatitis. Common treatments include: cortisone-type creams, antihistamines, lotions and creams or oatmeal baths (to relieve itching). How can I prevent contact dermatitis? For allergic contact dermatitis: Avoid contact with substances that cause the skin rash. Wash any area that comes into contact with allergic substances. Learn to recognize poison oak and poison joelle. For irritant contact dermatitis: Wear cotton gloves under rubber gloves for all wet work. Or, use petroleum jelly to the protect the skin. Reapply the petroleum jelly two or three times a day and after washing your hands. Avoid contact with substances that irritate the skin. Use mild soaps. Use hand creams and lotions frequently. ? Copyright [id number] The [facility] [place]. All rights reserved This information is provided by the [facility] and is not intended to replace the medical advice of your doctor or health care provider. Please consult your health care provider for advice about a specific medical condition. For additional written health information, please contact the Health Information Center at [facility] or toll-free extension [phone] or visit [email or web address] This document was last reviewed on: 2004 index#[id number] Ollie Fisher APRN.[facility] Department [facility] Prescriptions ordered this encounter Disp Refills Start End TRIAMCINOLONE ACETONIDE 0.1 % TOPICA* 80 g 1 06/21/2017 Route: TOPICAL Sig: Apply 1 application to affected area three times daily. Apply sparingly to area for rash/itching. PREDNISONE 10 MG TABLET 30 t* 0 06/21/2017 07/03/2017 Sig: Take 4 tabs daily x 3 days, then 3 tabs x 3 days, 2 tabs x 3 days, then 1 tab x3 days with food. CEPHALEXIN 500 MG CAPSULE 30 c* 0 06/21/2017 07/01/2017 Route: ORAL Sig: Take 1 capsule by mouth three times daily for 10 days. Status:Closed by OLLIE FISHER CNP on 06/21/17 Normal [facility] PROGRESSon 06-21-2017 PROGRESS HNO ID: [id number] thor: Ollie (Plow Shaker) Freddy: (none)Author Type: Nurse PractitionerType: Progress NotesFiled: 06/21/2017 12:24 PMNote Text:SubjectiveHPIHPI Rob Maxwell is a 31 year old male who presents today for CC ofitchy rash. This started 2 weeks ago. Has tried otc treatment. Symptomsare worsened by nothing. 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.Lesions on right arm improving, abdomen/torso severe currently.noone that lives with patient have similar symptoms..Patient presents with:poison joelle: x 2 weeks on arms and torsoNo past medical history on file.No past surgical history on file.ALLERGIES Patient has no known allergies.MEDICATIONS No prescriptions on file.No family history on file.Social HistorySubstance Use Topics- Smoking status: Current Every Day Smoker- Smokeless tobacco: Never Used- Alcohol use Not on fileReview of SystemsConstitutional: Negative for chills and fever.Skin: Positive for itching and rash (Positive for clear, watery drainage.Denies warmth and purulent drainage. ).ObjectiveBlood pressure 130/74, pulse 95, temperature 36.6 ?C (97.9 ?F),temperature source Tympanic, resp. rate 16, weight 71.7 kg (158 lb).Physical ExamConstitutional: He is oriented to person, place, and time andwell-developed, well-nourished, and in no distress. Non-toxic appearance.He does not have a sickly appearance. No distress.HENT:Head: Normocephalic and atraumatic.Neurological: He is alert and oriented to person, place, and time.Skin: Skin is warm, dry and intact. Rash noted. He is not diaphoretic.Ruptured/scabbed lesions, mostly with linear distribution. No abdomen fewareas beefy red/warm, concerns for secondary infection. ASSESSMENT/PLAN:1. Contact dermatitis, unspecified contact dermatitis type, unspecifiedtrigger - ICD9: 692.9, ICD10: L25.9 (primary diagnosis)- Oral Steriod tx -Prednisone taper- Topical steriod tx with Rx for steriod cream/ointment- see orders- discussed skin care of rash- follow up if symptoms persist or worsen.- TRIAMCINOLONE ACETONIDE 0.1 % TOPICAL CREAM- PREDNISONE 10 MG TABLET2. Secondary infection of skin - ICD9: 686.8, ICD10: L08.89-will cover with kephlex, discussed skin care-if worsening symptoms/ follow up- CEPHALEXIN 500 MG CAPSULEPrescription instructions reviewed with patient as applicable. Patientadvised if symptoms do not improve or if symptoms worsen sooner, tocontact the office for further evaluation by their primary care physician. Potential red flag symptoms discussed with the patient. Reviewedappropriate action plan to take if red flag symptoms occur. Patientagreeable to treatment plan.Ollie Fisher APRN.FOOD SAFETY MANAGER Normal [facility] Vital Signs Date Time Vital Sign Value Performing Clinician Marko christianson 08-18-2022 00:15-0400 Diastolic blood pressure 75 mm[Hg] [facility] 08-18-2022 00:15-0400 Systolic blood pressure 165 mm[Hg] [facility] 08-17-2022 21:51-0400 Body mass index (BMI) [Ratio] 21.3 kg/m2 [facility] 08-17-2022 21:51-0400 Body weight 71.3 kg [facility] 08-17-2022 21:39-0400 Body height 182.88 cm [facility] 08-17-2022 21:39-0400 Body temperature 97.4 [degF] [facility] 08-17-2022 21:39-0400 Heart rate 86 /min [facility] 08-17-2022 21:39-0400 Respiratory rate 15 /min [facility] 08-17-2022 21:39-0400 SaO2% (BldA) [Mass fraction] 100 % [facility] Encounters Encounter Date Encounter Type Care Provider Facility Start: 12-14-2024 End: 12-14-2024 Emergency department patient visit Bon Martinez Facility:[facility] Start: 08-17-2022 End: 08-18-2022 Emergency department patient visit [facility] Work Phone: Start: 03-12-2020 End: 03-13-2020 Emergency department patient visit Nguyễnalycia TannerNaveed Facility:[facility] Start: 10-17-2019 End: 10-17-2019 Emergency department patient visit Bear Barros Nick Facility:[facility] Start: 09-11-2019 End: 09-11-2019 Emergency department patient visit TASHA CUEVAS Facility:[facility] Start: 11-05-2017 End: 11-05-2017 Emergency department patient visit VIRIDIANA BLACK [facility] Start: 10-16-2017 End: 10-16-2017 Emergency department patient visit Bear Kingsley Palacio Facility:[facility] Start: 06-21-2017 End: 2017 [facility] Procedures Date Procedure Procedure Detail Performing Clinician Start: 08-17-2022 X-ray of both feet Plan of Treatment Date Care Activity Detail Author Patient referral [facility] Work Phone: Payers Date Payer Category Payer Unknown [id number] 2019 Self-pay 1985 Unknown [id number] [id number] [id number] 1985 Unknown [id number] 1984 Unknown [id number] [id number] [id number] 1984 Unknown [id number] [id number] [id number] Self-pay SELF PAY INSURANCE [id number] Unknown 00 Unknown [id number] [id number] [id number] Social History Date Type Detail Facility Start: 08-17-2022 Tobacco smoking stat us DEIS Unknown if ever smoked [facility] Start: 1985 Sex Assigned At Male [facility] Evaluation note Note Date & Type Note Facility Evaluation note No assessment information availa eliseo [facility] Work Phone: Summary Purpose Family History No Family History Records FoundNo Family History Records FoundNo Family History Records FoundNo Family History Records FoundNo Family History Records Found Advance Directives No Advanced Directives Records Found Advance Directive Response Recorded Date/ Time Living Will No August 17, 2022 9:51pm Power of Copyright Clerk No August 17 9:51pm Chief Complaint and Reason for Visit Chief Complaint LOWER EXTREMITY PAIN /CRAMPING AND EDEMA Additional Source Comments (unrecognized sect ion and content) No Status Records FoundNo Status Records FoundNo Status Records FoundNo Status Records FoundNo Status Records Found INFORMATION SOURCE (unrecogn ized section and content) DATE CREATED AUTHOR 07/26/2017 [facility] DATE CREATED AUTHOR AUTHOR'S ORGANIZ ATION 11/14/2017 [facility] DATE CREATED AUTHOR AUTHOR'S ORGANIZ ATION 12/08/2017 [facility] DATE CREATED AUTHOR AUTHOR'S ORGANIZ ATION 03/13/2020 [facility] DATE CREATED AUTHOR AUTHOR'S ORGANIZ ATION 12/16/2024 [facility] Care Teams (unrecognized sec tion and content) Team Status: Active Member Role Status Dates No Primary Care Physician Primary Care Provider Active Team Status: Inactive Member Role Status Dates No Primary Care Physician Primary Care Provider Active Dr. Kaela Schmid , DO Emergency Provider Active Goals (unrecognized section and content) Goals may be documented in a n alternate section FOR RECORDS PERTAINING TO PATIENTS WHO ARE OR HAVE BEEN ENROLLED IN A CHEMICAL DEPENDENCY/SUBSTANCEABUSE PROGRAM, SOME INFORMATION MAY BE OMITTED. This clinical summary was aggregated from multiple sources. Caution should be exercised in using it in the provision of clinical care. This summary normalizes information from multiple sources, and as a consequence, information in this document may materially change the coding, format and clinical context of patient data. In addition, data may be omitted in some cases. CLINICAL DECISIONS SHOULD BE BASED ON THE PRIMARY CLINICAL RECORDS. [facility]. provides no warranty or guarantee of the accuracy or completeness of information in this document.
[2024-12-22 09:46] LABS: AST(SGOT) 22 U/L (<=37); Alanine Aminotransfer ALT/SGPT 11 U/L (<=46); Albumin, Serum 4.3 g/dL (3.5-5.0); Alkaline Phosphatase 82 U/L (40-129); Anion Gap 11 (5-15); BUN 8 mg/dL (4-19); BUN/Creat Ratio 8.1 RATIO (10-20); Calcium,Total 9.4 mg/dL (7.6-11.0); Carbon Dioxide 23.4 mmol/L (21.0-32.0); Chloride 104 mmol/L (98-108); Estimated Creatinine Clearance 103.03 ml/min (50-250); Globulin 3.1 g/dL (2.2-4.2); Glucose 100 mg/dL (70-99); Lipase 9 U/L (13-75); Potassium 3.9 mmol/L (3.3-5.1)
[2024-12-22 10:09] LABS: Mucous, Urine 0 SEEN /hpf (<or=2+); Red Blood Cells-Urine 0 SEEN /hpf (0-5); Squamous Epithelial Cells - UA 0 SEEN /hpf (0-5)
[2024-12-22 10:12] LABS: Color, Urine Yellow (Yellow); Glucose, Dipstick Normal (Normal); Ketone-Dipstick Negative (Negative); Leukocyte Esterase-Dipstick Negative /ul (Negative); Nitrite-Dipstick Negative (Negative); Occult Blood-Urine Negative /ul (Negative); Protein-Dipstick 15 mg/dl (Negative); Specific Gravity, Urine 1.005 (1.002-1.030); Urine Bilirubin Dipstick Negative (Negative)
[2024-12-22 10:40] VITALS: BP 131/93; PULSE 78; RESP 16; TEMP 36.6; O2SAT 100
== END 2024-12-22 10:42 | disposition home or self-care (01) ==
PROVIDERS: Emergency Provider Emergency Medicine; Visit Provider Emergency Medicine
DX: R10.11 Right upper quadrant pain (principal); K56.7 Ileus, unspecified; Z87.891 Personal history of nicotine dependence; R10.13 Epigastric pain; K59.00 Constipation, unspecified
CPT/HCPCS: 74177; 80053; 81001; 83690; 85025; 96360; 96361; 99283; Q9967; A4216

== ENCOUNTER 2025-01-19 08:53 | Emergency (ER) | payer MEDICAID, SELFPAY ==
[2025-01-19 08:54] VITALS: BP 128/92; PULSE 89; RESP 16; TEMP 35.7; O2SAT 100
[2025-01-19 08:55] VITALS: BMI 20.6
--- NOTE | 2025-01-19 09:25 | CT_ITS ---
PROCEDURE: ABDOMEN/PELVIS W IV CONT ONLY 01/19/2025 REASON FOR EXAM: ABD PAIN TECHNIQUE: Procedure Code: [id number] Modality: CT Procedure: ABDOMEN/PELVIS W IV CONT ONLY Coronal and Sagittal reconstruction series were provided. CONTRAST: Isovue 370 VOLUME: 90 mL One or more dose reduction techniques were used (e.g., Automated exposure control, adjustment of the mA and/or kV according to patient size, use of iterative reconstruction technique. RADIATION DOSE SUMMARY: CTDlvol: 5.38 mGy DLP: 284.08 mGycm COMPARISON: None FINDINGS: Lung bases: Clear. Liver: Unremarkable. Gallbladder: Unremarkable. No biliary dilation. Spleen: Unremarkable. Pancreas: Unremarkable. Adrenals: Unremarkable. Kidneys: No hydronephrosis. No nephrolithiasis. Bladder: Unremarkable. Reproductive Organs: Unremarkable. Bowel: No bowel obstruction. No bowel thickening. Appendix: Unremarkable. Lymph nodes: No lymphadenopathy. Vasculature: No aneurysm. Peritoneum / Retroperitoneum: No free air or free fluid. Bones: No acute bony abnormalities. Soft tissues: Small inguinal hernia contains peritoneal fluid measures 3.[address]/Abdomen/Pelvis W IV Cont ONLY IMPRESSION: No acute abdominopelvic abnormalities. Reading Location: [id number]
--- NOTE | 2025-01-19 09:25 | ED.VIS.GI ---
HPI HPI - GI History of Present Illness Chief Complaint: Abd Pain Narrative Narrative: Patient is a 39-year-old male presenting to the emergency department for on and off abdominal pain for the past month and a half. Patient has a history of methamphetamine abuse. He denies any fever or chills. Denies any nausea or vomiting. States he had a normal bowel movement this morning, no diarrhea or constipation. No dysuria or hematuria. He states that he has not followed up with his primary care doctor because he thought he it would go away. He states that he was on antibiotics for about 5 days and it did not really help with the symptoms. States he had bloating initially that has since resolved. States the abdominal pain is mostly after he eats. States he is concerned about an obstruction. [facility] Medical History Methamphetamine abuse Home Medications ?Medication ?Instructions ?Recorded ?Last Taken ?Type ondansetron 4 mg disintegrating 4 mg PO TID PRN nausea and 12/14/24 12/22/24 Rx tablet vomiting #21 tabs Allergy/AdvReac Type Severity Reaction Status Date / Time No Known Allergies Allergy Verified 01/19/25 08:54 Social History Smoking Status: Former smoker substance use type: amphetamines ROS ROS ED ROS Narrative see HPI EXAM Physical Exam Narrative Exam Narrative: Vital signs: Reviewed General: Alert and oriented x 3. No acute distress. Well-appearing, nontoxic HEENT: Head is normocephalic and atraumatic, sinuses nontender, pupils equal round and reactive. Nares are patent. Oropharynx and throat exams normal. Neck: Supple without lymphadenopathy nontender Cardiovascular: Regular rate and rhythm, no murmurs. No rubs or gallops. Normal S1 and S2 Respiratory: Clear to auscultation bilaterally. No wheezes, rales, rhonchi Abdominal: Soft and nontender. Normal bowel sounds. No guarding or rebound. Nonsurgical abdomen Extremities: No tenderness. No bruising. Normal range of motion. Normal sensation. Skin: No rash or redness. The rest of the physical exam is unremarkable Const Vital Signs: 01/19/25 08:54 01/19/25 10:53 01/19/25 11:11 Temperature 96.3 F L 96.3 F L Temperature Source Temporal Pulse Rate 89 89 Respiratory Rate 16 16 16 Blood Pressure 128/92 H 126/81 H Blood Pressure Mean 104 96 Pulse Ox 100 99 100 Oxygen Delivery Method Room Air Room Air MDM MDM MDM Narrative Medical decision making narrative: Patient is a 39-year-old male presenting to the emergency department for a month and a half of abdominal pain. Patient was seen and examined. Vitals are stable. Patient resting in bed comfortably no acute distress. Differential includes but is not limited to: Gastric ulcer, duodenal ulcer, ileus, partial SBO, biliary colic The length of the patient's symptoms I will obtain imaging and blood work however I feel that this is likely a more chronic problem. He has no pain at time of evaluation and therefore was not offered analgesic or antiemetic. He had a normal bowel movement this morning. Do not think he requires stool study. CBC with no leukocytosis and a normal hemoglobin. CMP with no significant abnormalities. Lipase is not elevated. Urinalysis with no evidence of urinary tract infection. CT shows no acute findings. Patient was updated on the negative workup. Instructed to follow-up with his primary care doctor soon as possible, he reports he does not have 1 and a referral was given. Patient discharged from the Emergency Department. I do not feel that the patient's evaluation reveals any acute reason for admission at this time. I instructed them to either follow-up with their primary care physician or promptly return to the Emergency Department for reevaluation should symptoms worsen or new symptoms develop. I explained what symptoms would indicate the need to return to the emergency department. Shared decision making was used. The patient voiced understanding of the treatment plan and is agreeable with it. Clinical impression: Abdominal pain History & Record Review Discussion w/independent historian: Patient Additional record(s) reviewed:: Prior ED visit and Prior labs Lab Data Attestation: I reviewed the patient's lab results. Labs: Laboratory Results - last 24 hr 01/19/25 01/19/25 09:32 10:55 WBC 4.5 RBC 4.99 Hgb 13.7 Hct 44.1 MCV 88.4 MCH 27.5 MCHC 31.1 L RDW Std Deviation 41.6 RDW Coeff of Siri 12.9 Plt Count 201 MPV 10.2 Immature Gran % (Auto) 0.200 Neut % (Auto) 60.2 Lymph % (Auto) 23.3 [place] % (Auto) 14.5 H Eos % (Auto) 1.1 Baso % (Auto) 0.7 Absolute Neuts (auto) 2.7 Absolute Lymphs (auto) 1.04 Nucleated RBC % 0 Sodium 140 Potassium 4.0 Chloride 102 Carbon Dioxide 26.5 Anion Gap 11 BUN 10 Creatinine 1.06 Estim Creat Clear Calc 90.54 Est GFR (MDRD) Non-Af 91 BUN/Creatinine Ratio 9.1 L Glucose 97 Calcium 9.6 Total Bilirubin 0.56 AST 24 ALT 12 Alkaline Phosphatase 85 Total Protein 7.1 Albumin 4.6 Globulin 2.5 Albumin/Globulin Ratio 1.8 Lipase 11 L Urine Color Yellow Urine Clarity Clear Urine pH 6.5 Ur Specific [place] 1.005 Urine Protein 15 H Urine Glucose (UA) Normal Urine Ketones 5 H Urine Occult Blood Negative Urine Nitrite Negative Urine Bilirubin Negative Urine Urobilinogen Normal Ur Leukocyte Esterase Negative Urine RBC 0 SEEN Urine WBC 0 SEEN Ur Squamous Epith Cells 0 SEEN Urine Bacteria 0 SEEN Urine Mucus 0 SEEN Radiography Diagnostic Testing: Clinical Impression(s) from Imaging Studies Abdomen/Pelvis CT 01/19/25 09:25 IMPRESSION: No acute abdominopelvic abnormalities. Reading Location: [facility] Discharge Plan Triage Chief Complaint: Abd Pain ED Provider: Tasha Cast Dx/Rx/DC Orders Clinical Impression: Abdominal pain Instructions: ED Abdominal Pain Unkn Cause Male... Prescriptions: No Action ondansetron 4 mg tablet,disintegrating 4 mg PO TID PRN (Reason: nausea and vomiting) Qty: 21 0RF Primary Care Provider: Care Physician,No Primary Referrals: Margie Coe MD [Med Staff - [employer], Internal Medicine] - As soon as possible Care Physician,No Primary [Primary Care Provider, Medical] Activity Restrictions/Additional Instructions: Follow-up with your primary care doctor if you do not have one I provided you one below. Your evaluation in the Emergency Department did not reveal any acute reason for admission. However, I want to emphasize that you may be early in the course of a disease process or illness even if it is not present. For this reason you should follow-up within 24 hours for reevaluation with either your primary care physician or if necessary back here in the Emergency Department. You should return to the Emergency Department immediately if your symptoms worsen or new symptoms develop. Print Language: Tajik Disposition Disposition: Home, Self Care Discharge Date/Time: 01/19/25 11:15
--- OUTSIDE RECORDS SUMMARY | 2025-01-19 09:27 | XMS RPT_ITS | CCD ---
Author Organization [facility] ion [facility] Care Team Providers Care Vehicle Care Specialist Name Role Phone Bear Palacio Unavailable Unavailable [...] Propensity to adverse reactions to drug (disorder) [facility] Repository Problems Problem Classification Problem Date Documented Da te Episodic/Chronic Substance-related disorders (1 source) Methamphetamine abuse; Translations: [Other stimulant abuse, uncomplicated] 08-02-2020 Chronic Results Test Name Value Interpretation Reference Range Facility Emergency Department Summary on 12-14-2024 Emergency Department Summary [facility] Medical Records Department [address] [place] [address] Emergency Department Summary 12/14/24 MR#: [id number] Acct: [id number] Name: ROB MAXWELL Rep #: [id number] : 1985 39 From: Bon Martinez DO PCP: Care Physician,No Primary Status:DEP ER Location: ED HPI History of Present Illness Chief Complaint: Abd Pain Informant: patient Narrative Narrative: Patient is a 39-year-old male with history of methamphetamine abuse. He states that a few weeks ago he thinks he ate some bad chicken. He states he has had generalized abdominal pain since that time. He states that he believes he has pus in his stomach. He states has been no nausea vomiting diarrhea. He denies any fevers or chills. However because he has concern for intestinal infection he presents for evaluation [facility] Medical History Methamphetamine abuse Home Medications ???Medication [...] Abdominal otis (more content not included)... Normal [facility] Basophil percentageOrdered B y: Kaela Schmid on 08-17-2022 Basophil percentage 0-5 SEEN /hpf 0-5 [facility] Bilirubin [Mass/Vol] 0.30 mg/dL 0.20-1.00 [facility] Comment on above: For patients on eltr ombopag therapy, use of Dimension Coalgate TBIL is not recommended. Chloride [Moles/Vol] 104 mmol/L 98-107 [facility] Glucose [Mass/Vol] 98 mg/dL 74-[address] [facility] Potassium [Moles/Vol] 3.6 mmol/L 3.5-5.[address] [facility] Protein [Mass/Vol] 7.0 g/dL 6.4-8.[address] [facility] Sodium [Moles/Vol] 137 mmol/L 136-[address] [facility] Bilirubin Test strip Ql (U)O rdered By: Kaela Schmid on 08-17-2022 Bilirubin Ql (U) Negative Negative [facility] Ketones Test strip Ql (U)Ord ered By: Kaela Schmid on 08-17-2022 Ketones Ql (U) Negative Negative [facility] Laboratory - Chemistry and C hemistry - challengeOrdered By: Kaela Schmid on 08-17-2022 ALP [Catalytic activity/Vol] 90 U/L 45-[address] [facility] ALT [Catalytic activity/Vol] 23 U/L 16-[address] [facility] CK [Catalytic activity/Vol] 427 U/L 39-[address] [facility] CO2 [Moles/Vol] 31.0 mmol/L 21.0-32.[address] [facility] Globulin (S) [Mass/Vol] 3.6 g/dL 2.2-4.[address] [facility] Magnesium [Mass/Vol] 1.9 mg/dL 1.6-2.6 [facility] Urea nitrogen/Creatinine [Mass ratio] 14.3 mg/mg 10-[address] [facility] Laboratory - Drug toxicology Ordered By: Kaela Schmid on 08-17-2022 Amphetamines Ql (U) Positive <1000 ng/mL [facility] Benzodiazepines Ql (U) Negative < 200 ng/mL [facility] Cannabinoids Screen Ql (U) Negative < 50 ng/mL [facility] Cocaine Ql (U) Negative < 300 ng/mL [facility] Opiates Ql (U) Negative < 300 ng/mL [facility] Mucus LM Ql (Urine sed)Order ed By: Kaela Schmid on 08-17-2022 Mucus Ql (Urine sed) 0 SEEN /hpf [facility] Nitrite Test strip Ql (U)Ord ered By: Kaela Schmid on 08-17-2022 Nitrite Ql (U) Negative Negative [facility] No Panel InformationOrdered By: Kaela Schmid on 08-17-2022 MDMA (Ecstasy) Screen Negative < 500 ng/mL [facility] Urine Barbiturates Screen Negative < 200 ng/mL [facility] Urine Drug Screen Comment [facility] Comment on above: CONFIRMATORY TESTING FOR ALL [...] Urine Methadone Screen Negative < 300 ng/mL [facility] Estimated Creatinine Clearance Calc 111.00 ml/min [facility] Estimated GFR (MDRD) Amer 120 mL/min >[address] [facility] Comment on above: GFR Calc Estimated GFR (MDRD) Non-Af Amer 100 mL/min >[address] [facility] Comment on above: Non- GFR Calc Ethyl Alcohol Level < 3.0 mg/dL [facility] Comment on above: The serum:whole bloo d ethanol ratio is approximately 1.14and varies slightly with hematocrit. Medical Alcohol reference interval and critical value innon-tolerant individuals; 50 - 100 Impairment 100 Intoxication 100 - 250 Severe Poisoning 250 - 400 Deep/possible fatal coma Thyroid Stimulating Hormone (TSH) 0.61 uIU/mL 0.358-3.[address] [facility] Protein Test strip Ql (U)Ord ered By: Kaela Schmid on 08-17-2022 Protein Ql (U) 15 mg/dl Negative [facility] Serum or plasma albumin maria del carmen urement (mass/volume)Ordered By: Kaela Schmid on 08-17-2022 Albumin [Mass/Vol] 3.4 g/dL 3.2-5.[address] [facility] Serum or plasma albumin/glob ulin mass ratioOrdered By: Kaela Schmid on 08-17-2022 Albumin/Globulin [Mass ratio] 0.9 {ratio} 0.9-2.[address] [facility] Serum or plasma calcium maria del carmen urement (mass/volume)Ordered By: Kaela Schmid on 08-17-2022 Calcium [Mass/Vol] 8.8 mg/dL 8.5-10.[address] [facility] Serum or plasma creatinine m easurement (mass/volume)Ordered By: Kaela Schmid on 08-17-2022 Creatinine [Mass/Vol] 0.91 mg/dL 0.70-1.[address] [facility] Comment on above: The validity of the calculated GFR & GFRAA in patients over 70 years has not been determined. Clinical correlation is essential. Serum or plasma urea nitroge n measurement (mass/volume)Ordered By: Kaela Schmid on 08-17-2022 Urea nitrogen [Mass/Vol] 13 mg/dL 7-[address] [facility] Squamous epithelial cells de tection in urine sediment by light microscopyOrdered By: Kaela Schmid on 08-17-2022 Epithelial cells.squamous LM Ql (Urine sed) 0 SEEN /hpf 0-[address] [facility] Thin prep Papanicolaou smear with manual screeningOrdered By: Kaela Schmid on 08-17-2022 Thin prep Papanicolaou smear with manual screening 17 U/L 15-[address] [facility] Thin prep Papanicolaou smear with manual screening 2 5-[address] [facility] Urine blood detectionOrdered By: Kaela Schmid on 08-17-2022 RBC Ql (U) Negative Negative [facility] RBC Ql (U) 0 SEEN /hpf 0-[address] [facility] Urine clarityOrdered By: Gloria Schmid on 08-17-2022 Clarity (U) Clear Clear [facility] Urine color determinationOrd ered By: Kaela Schmid on 08-17-2022 Color (U) Yellow Yellow [facility] Urine glucose detectionOrder ed By: Kaela Schmid on 08-17-2022 Glucose Ql (U) Normal mg/dl Normal [facility] Urine leukocyte esterase det ection by dipstickOrdered By: Kaela Schmid on 08-17-2022 Leukocyte esterase Test strip Ql (U) 25 /ul Negative [facility] Urine pHOrdered By: Kaela fernandez on 08-17-2022 pH (U) 7.0 [pH] 5.0 - 8.[address] [facility] Urine phencyclidine (PCP) de tectionOrdered By: Kaela Schmid on 08-17-2022 Phencyclidine Ql (U) Negative < 25 ng/mL [facility] Urine sediment bacteria coun t by microscopy (number/high power field)Ordered By: Kaela Schmid on 08-17-2022 Bacteria LM.HPF (Urine sed) [#/Area] 0 /[HPF] None Seen [facility] Urine specific gravity measu rementOrdered By: Kaela Schmid on 08-17-2022 Specific gravity (U) [Rel density] 1.010 1.002-1.[address] [facility] Urobilinogen Auto test strip Ql (U)Ordered By: Kaela Schmid on 08-17-2022 Urobilinogen Ql (U) Normal mg/dl Normal [facility] COV19 Rapidon 03-13-2020 Employed in healthcare? No Normal [facility] Comment on above: Performed By: #### C [id number] #### [place] [address] Group care resident? No Normal [facility] Comment on above: Performed By: #### C [id number] #### [place] [address] Hospitalized due to COVID-19? No Normal [facility] Comment on above: Performed By: #### C [id number] #### [place] [address] In ICU? No Normal [facility] Comment on above: Performed By: #### C D:[id number] #### [place] [id number] Is this the first test for COVID? Unknown [facility] Comment on above: Performed By: #### C [id number] #### [place] [address] status? Not Applicable [facility] Comment on above: Performed By: #### C [id number] #### [place] [id number] Reason for Rapid Test Inpatient Normal [facility] Comment on above: Performed By: #### C D:[id number] #### [place] [id number] SARS-CoV-2 RNA Detection Negative Normal Negative [facility] Comment on above: Result Comment: The 2019 [...] using the ID NOW COVID-19 test by [employer], which has received Emergency Use Authorization (EUA) [...] at the following links: For Healthcare Providers: https://www.fda.gov/media/730028/download For Patients: https://www.fda.gov/media/057839/download Performed By: #### C [id number] #### [address] [address] Symptomatic as defined by CDC? No Normal [facility] Comment on above: Performed By: #### C D:[id number] #### [address] [address] ED Clinical Summaryon 2020 ED Clinical Summary (Inserted Image. Joyce ble to display) [address] [id number] ED Clinical Summary Person Information Name: Rob Maxwell [facility] Age: 34 Years : 1985 Sex: Male PCP: Marital Status: Single Phone: Race: White Ethnicity: Not or Language: Cymraes Visit Reason: Medical problem - minor; Medical problem Acuity: 5 Enc Type: Emergency Med Service: Emergency Medicine Arrival: 03/12/2020 21:35:54 Discharge: 03/12/2020 22:03:00 LOS: 000 00:28 Checkin: 03/12/2020 21:35:54 Checkout: 03/12/2020 22:03:00 Dispo Type: Home or Self Care Address: [address] [place], [place] [id number] Provider Notes: History of Present Illness Patient [...] unknown Patient Education Information: Understanding Bloodborne Pathogens [facility] Poison Help line: . [facility] Hotline: [place] Tobacco Quit Line: [place], [place]) [address]: [phone] [place], [place]) [address]: [phone] [facility] [address] [place], [place]: [phone] [facility] ED Note-Physicianon 03-12-19 21 ED Note-Physician Chief [...] by Kirt Lucio 03/12/20 21:55 EST Normal [facility] ED Clinical Summaryon 2019 ED Clinical Summary (Inserted Image. Joyce ble to display) [place] [address] [place] [address] ED Clinical Summary Person Information Name: Rob Maxwell Radha/[facility] Age: 34 Years : 1985 Sex: Male PCP: Marital Status: Single Phone: Race: White Ethnicity: Not or Language: Cymraes Visit Reason: Dental pain; Dental pain or trauma Acuity: 4 Enc Type: Emergency Med Service: Emergency Medicine Arrival: 10/17/2019 01:23:27 Discharge: 10/17/2019 02:07:00 LOS: 000 00:44 Checkin: 10/17/2019 01:23:27 Checkout: 10/17/2019 02:07:00 Dispo Type: Home or Self Care Address: [address] [place] [address] Provider Notes: History of Present Illness ? [...] Med List: New Medications [facility] [facility], [address] [place], [place] [id number], [phone] amoxicillin (amoxicillin 500 mg oral capsule) 1 Capsules Oral (given by mouth) 3 times a day for 10 Days. Refills: 0. Last Dose: naproxen (naproxen 500 mg oral delayed release tablet) 1 Tabs Oral (given by mouth) 2 times a day for 10 Days. Refills: 0. Last Dose: [facility] [facility] [address] [place], [place] [id number], [phone] amoxicillin (amoxicillin 500 mg oral capsule) 1 Capsules Oral (given by mouth) 3 times a day for 10 Days. Refills: 0. naproxen (naproxen 500 mg oral delayed release tablet) 1 Tabs Oral (given by mouth) 2 times a day for 10 Days. Refills: 0. Care Team Members: Attending Physician: Bear Romero MD Consulting Physician: Referring Physician: Provider Role Assigned Unassigned Giselle Meade ED Nurse 10/17/2019 01:26:24 Bear Romero MD ED Provider 10/17/2019 01:38:42 Follow up: With: Address: When: Please follow-up with a dentist as we discussed. You may return to this ED if your symptoms get worse at any point. Discharge Orders: Discharge Patient 10/17/19 1:55:00 EDT, Discharge to Home, Self, Pain due to dental caries Patient Education Information: Dental Pain [facility] Poison Help line: . [facility] Hotline: [place] Tobacco Quit Line: [place], [place]) [address]: [phone] [place], [place]) [address]: [phone] [facility] [address] [place], [place]: [phone] Normal [facility] ED Note-Physicianon 10-17-19 ED Note-Physician Chief Complaint [...] caps, 0 Refill(s), 10/27/19 1:55:00 EDT, Pharmacy: [facility] naproxen, 1 tabs, Oral, BID, X 10 days, # 20 tabs, 0 Refill(s), 10/27/19 1:55:00 EDT, Pharmacy: [facility] Discharge Patient Orders: amoxicillin, 500 mg, Oral, Cap, Once, First Dose: 10/17/19 1:53:00 EDT, Stop Date: 10/17/19 1:53:00 EDT, STAT, Dispense From Location: [facility], Dental Infection/Abscess naproxen, 500 mg, Oral, Tab, Once, First Dose: 10/17/19 1:53:00 EDT, Stop Date: 10/17/19 1:53:00 EDT, STAT, Dispense From Location: [facility] Problem List/Past Medical History Ongoing No qualifying [...] Bear Romero MD 10/17/19 01:59 EDT Normal [facility] ED Clinical Summaryon 2019 ED Clinical Summary (Inserted Image. Joyce ble to display) [facility] [address] [place] [address] ED Clinical Summary Person Information Name: Rob Maxwell Radha/[facility] Age: 34 Years : 1985 Sex: Male PCP: Marital Status: Single Phone: Race: White Ethnicity: Not or Language: Cymraes Visit Reason: Toothache; Mouth pain Acuity: 4 Enc Type: Emergency Med Service: Emergency Medicine Arrival: 09/11/2019 10:58:00 Discharge: 09/11/2019 11:16:00 LOS: 000 00:18 Checkin: 09/11/2019 10:58:00 Checkout: 09/11/2019 11:16:00 Dispo Type: Home or Self Care Address: [address] [place] [address] Provider Notes: History of Present Illness The [...] excursion, no accessory muscle, no stridor] Skin: [Malcolm, warm, dry. No rashes, cellulitis, or petechiae. [...] Home, Self Patient Education Information: Dental Abscess [facility] Poison Help line: . [facility] Hotline: [place] Tobacco Quit Line: [facility] ([place], [place]) [address]: [phone] [place], [place]) [address]: [phone] [facility] [address] [place], [place]: [phone] Normal [facility] ED Note-Physicianon 09-11-19 ED Note-Physician Chief Complaint I have an abscessed tooth, having pain on th left side of my mouth, noticed it a week ago History of Present Illness The patient is [...] excursion, no accessory muscle, no stridor] Skin: [Malcolm, warm, dry. No rashes, cellulitis, or petechiae. [...] however decides against it. We will continue uium-heb-fpophtw medication for pain relief. Is educated to [...] 09/11/19 11:04:00 EDT, STAT, Dispense From Location: [id number], Dental Infection/Abscess Discharge Patient Problem List/Past Medical [...] qualifying data available (MRI) Electronically signed by MasonTasha adamson PA-C 09/11/19 11:09 EDT Normal [facility] EMERGENCY REPORTon 8 EMERGENCY REPORT [facility] EM ERGENCY ROOM REPORT NAME ACCOUNT SEX AGE ADMIT DISCHARGE PT MED. RECORD# NUMBER DATE DATE TYPE TOMEKA, [id number] 11/04/17 11/05/17 3 ROB [id number] ROOM: ER DATE OF : 1985 DICTATING PHYSICIAN: Viridiana Hunt CHIEF COMPLAINT: Dental pain. HISTORY OF PRESENT ILLNESS: This is a 32-year-old gentleman with poor dental care, multiple dental caries, presenting for evaluation of tooth pain. Patient states symptoms have been going on for a while and he has been previously seen and [...] is at the emergency department today to get a shot of Novocain. Patient denies fevers or chills. He states [...] Viridiana Hunt MD 11/05/17 03:27 JOB #: [id number] Transcribed By: mary 11/05/17 10:39 Electronically signed by: E-SIGN: DR. VIRIDIANA HUNT M.D. 11/14/17 03:17 Page 2 of 2 ROB MAXWELL Emergency Room Report Normal [facility] 06-21-2017 CN Office Visit ([facility]) ----ROB MAXWELL ([id number]) 1985 MDate Time Provider Department06/21/17 12:00 PM OLLIE FISHER ([facility]) [facility] During your visit today, we recorded the [...] breath.Common sources of irritant contact dermatitisDetergents, soaps, automotive glass mechanic, waxes and chemicals are substances that canirritate [...] face, and genital areas (severe cases)HivesSun sensitivityDarkened, leathery and cracked skinAllergic contact dermatitis can be [...] soaps.Use hand creams and lotions frequently.? Copyright 6224-8606 The [facility]. All rights reserved This information is provided by the [facility] and is not intended toreplace the medical advice of your doctor or health care provider. Pleaseconsult your health care provider for advice about a specific medicalcondition. For additional written health information, please contact the HealthInformation Center at the [facility] or toll-free extension [phone] or visit [email or web address] Thisdocument was last reviewed on: 12/10/2004index#[email or web address] Fisher APRN.[facility]Department of PediatricsK[facility] [phone] Provider: SELF [200]Allergies As of Date: 06/21/2017(No Known Allergies)Date Reviewed: 06/21/2017Reviewed by: Ollie Reynoso) - Fully AssessedReason for Visit: poison joelle [...] sources of irritant contact dermatitis Detergents, soaps, automotive glass mechanic, waxes and chemicals are substances that can [...] areas (severe cases) Hives Sun sensitivity Darkened, leathery and cracked skin Allergic contact dermatitis can [...] contact with (including cosmetics, lotions, and nail ukrainian). With either type of contact dermatitis, you [...] hand creams and lotions frequently. ? Copyright 3928-2942 The [facility]. All rights reserved This information is provided by the [facility] and is not intended to replace the medical advice of your doctor or health care provider. Please consult your health care provider for advice about a specific medical condition. For additional written health information, please contact the Health Information Center at the [facility] or toll-free extension [phone] or visit [email or web address] This document was last reviewed on: 2004 index#5547 Ollie Fisher APRN.[facility] Department of Pediatrics [facility] [place] Prescriptions ordered this encounter Disp Refills Start [...] by OLLIE FISHER CNP on 06/21/17 Normal [facility] PROGRESSon 06-21-2017 PROGRESS HNO ID: [id number] thor: Ollie (Donell) Freddy: (none)Author Type: Nurse PractitionerType: Progress NotesFiled: [...] symptoms occur. Patientagreeable to treatment plan.Ollie Fisher APRN.PASSENGER BOOKING CLERK Normal [facility] Vital Signs Date Time Vital Sign Value Performing Clinician Marko christianson 08-18-2022 00:15-0400 Diastolic blood pressure 75 mm[Hg] [facility] 08-18-2022 00:15-0400 Systolic blood pressure 165 mm[Hg] [facility] 08-17-2022 21:51-0400 Body mass index (BMI) [Ratio] 21.3 kg/m2 [facility] 08-17-2022 21:51-0400 Body weight 71.3 kg [facility] 08-17-2022 21:39-0400 Body height 182.88 cm [facility] 08-17-2022 21:39-0400 Body temperature 97.4 [degF] [facility] 08-17-2022 21:39-0400 Heart rate 86 /min [facility] 08-17-2022 21:39-0400 Respiratory rate 15 /min [facility] 08-17-2022 21:39-0400 SaO2% (BldA) [Mass fraction] 100 % [facility] Encounters Encounter Date Encounter Type Care Provider Facility Start: 12-14-2024 End: 12-14-2024 Emergency department patient visit Bon Martinez Facility:[facility] Start: 08-17-2022 End: 08-18-2022 Emergency department patient visit [facility]-Emergency Department Work Phone: Start: 03-12-2020 End: 03-13-2020 Emergency department patient visit Kirt Lucio Facility:[facility] Start: 10-17-2019 End: 10-17-2019 Emergency department patient visit Bear Bullardrossy Fergusonau Facility:[facility] Start: 09-11-2019 End: 09-11-2019 Emergency department patient visit TASHA CUEVAS Facility:[facility] Start: 11-05-2017 End: 11-05-2017 [facility] Start: 10-16-2017 End: 10-16-2017 Emergency department patient visit Bear Palacio Facility:[place] Start: 06-21-2017 End: 2017 Ambulatory [facility] Procedures Date Procedure Procedure Detail Performing Clinician Start: 08-17-2022 X-ray of both feet Plan of Treatment Date Care Activity Detail Author Patient referral [facility] Work Phone: Payers Date Payer Category Payer Unknown [id number] 2019 Self-pay 1985 Unknown [id number] 2.16.84 [id number] 1985 Unknown [id number] 1985 Unknown [id number] [id number] 1985 Unknown [id number] .16.8 [id number] Self-pay SELF PAY INSURANCE [id number] Unknown 00 Unknown [id number] Social History Date Type Detail Facility Start: 08-17-2022 Tobacco smoking stat us [facility] Unknown if ever smoked [facility] Start: 1985 Sex Assigned At Male W [facility] Evaluation note Note Date & Type Note Facility Evaluation note No assessment information availa eliseo [facility] Work Phone: Summary Purpose Family History No Family History Records FoundNo Family History Records FoundNo Family History Records FoundNo Family History Records FoundNo Family History Records Found Advance Directives No Advanced Directives Records Found Advance Directive Response Recorded Date/ Time Living Will No August 17, 2022 9:51pm Power of Auto Machinist No August 17 9:51pm Chief Complaint and Reason for Visit Chief Complaint LOWER EXTREMITY PAIN /CRAMPING AND EDEMA Additional Source Comments (unrecognized sect ion and content) No Status Records FoundNo Status Records FoundNo Status Records FoundNo Status Records FoundNo Status Records Found INFORMATION SOURCE (unrecogn ized section and content) DATE CREATED AUTHOR 07/26/2017 [facility] DATE CREATED AUTHOR AUTHOR'S ORGANIZ ATION 11/14/2017 [facility] DATE CREATED AUTHOR AUTHOR'S ORGANIZ ATION 12/08/2017 [facility] DATE CREATED AUTHOR AUTHOR'S ORGANIZ ATION 03/13/2020 [facility] DATE CREATED AUTHOR AUTHOR'S ORGANIZ ATION 12/16/2024 [facility] Care Teams (unrecognized sec [...] BE BASED ON THE PRIMARY CLINICAL RECORDS. [facility] provides no warranty or guarantee of the accuracy or completeness of information in this document.
[2025-01-19 09:43] LABS: Hematocrit 44.1 % (40-54); Hemoglobin 13.7 g/dL (13.0-16.5); Immature Granulocytes Count 0.010 X10^3/uL (0.0-0.0); Mean Corp Hgb Conc 31.1 g/dL (32-36); Mean Corpuscular Volume 88.4 fL (80-94); Mean Platelet Vol. 10.2 fl (6.2-12.0); NRBC Flagged by Analyzer 0 % (0-5); Platelet Count 201 K/mm3 (150-450); RBC Distribution Width CV 12.9 % (11.6-14.6); RBC Distribution Width SD 41.6 fl (35.1-43.9); Red Blood Count 4.99 M/mm3 (4.6-6.2); White Blood Count 4.5 K/mm3 (4.4-11.0)
[2025-01-19 10:02] LABS: AST(SGOT) 24 U/L (<=37); Alanine Aminotransfer ALT/SGPT 12 U/L (<=46); Albumin, Serum 4.6 g/dL (3.5-5.0); Alkaline Phosphatase 85 U/L (40-129); Anion Gap 11 (5-15); BUN 10 mg/dL (4-19); BUN/Creat Ratio 9.1 RATIO (10-20); Calcium,Total 9.6 mg/dL (7.6-11.0); Carbon Dioxide 26.5 mmol/L (21.0-32.0); Chloride 102 mmol/L (98-108); Estimated Creatinine Clearance 90.54 ml/min (50-250); Globulin 2.5 g/dL (2.2-4.2); Glucose 97 mg/dL (70-99); Lipase 11 U/L (13-75); Potassium 4.0 mmol/L (3.3-5.1)
[2025-01-19 10:53] VITALS: RESP 16; O2SAT 99
[2025-01-19 11:01] LABS: Mucous, Urine 0 SEEN /hpf (<or=2+); Red Blood Cells-Urine 0 SEEN /hpf (0-5); Squamous Epithelial Cells - UA 0 SEEN /hpf (0-5)
[2025-01-19 11:02] LABS: Color, Urine Yellow (Yellow); Glucose, Dipstick Normal (Normal); Ketone-Dipstick 5 mg/dl (Negative); Leukocyte Esterase-Dipstick Negative /ul (Negative); Nitrite-Dipstick Negative (Negative); Occult Blood-Urine Negative /ul (Negative); Protein-Dipstick 15 mg/dl (Negative); Specific Gravity, Urine 1.005 (1.002-1.030); Urine Bilirubin Dipstick Negative (Negative)
[2025-01-19 11:11] VITALS: BP 126/81; PULSE 89; RESP 16; TEMP 35.7; O2SAT 100
== END 2025-01-19 11:15 | disposition home or self-care (01) ==
PROVIDERS: Emergency Provider Student in an Organized Health Care Education/Training Program; Visit Provider Student in an Organized Health Care Education/Training Program
DX: R10.9 Unspecified abdominal pain (principal); F15.90 Other stimulant use, unspecified, uncomplicated; Z87.891 Personal history of nicotine dependence
CPT/HCPCS: 36415; 74177; 80053; 81001; 83690; 85025; 99283; Q9967; A4216